=== PATIENT | female | born 1935 | race Caucasian/White ===

== ENCOUNTER 2016-12-26 21:54 | Emergency (ER) | payer OTHER, MEDICAID ==
[2016-12-26] MEDS ORDERED: Diatrizoate Meglumine/Diatri 30 mL Sol ONE (22:06)
--- NOTE | 2016-12-26 23:21 | ED Physician Chart ---
ED Chief Complaint/HPI - Patient Information Date Seen:: 12/26/16 Time Seen:: 22:07 Chief Complaint:: G-TUBE MALFUNCTION History of Present Illness:: THIS IS A 81 YO FEMALE SENT FROM A P[facility]ITENTIARY FOR REPLACEMENT OF HER MALFUNCTIONING G-TUBE. SHE IS PARAPLEGIC AND DEMENTED. Allergies:: Allergies Allergy/AdvReac Type Severity Reaction Status Date / Time Penicillins Allergy Verified 12/26/16 22:07 Vitals:: Vital Signs - 8 hr 12/26/16 22:00 Temp 97.2 F HR 51 RR 16 BP 129/66 O2 Sat % 98 Historian:: Medical Records Review:: Nurse's Note Reviewed, Old Chart Reviewed, Transfer documents Reviewed ED Review of Systems - Review of Systems General/Constitutional: No fever, No chills, No weight loss, No weakness, No diaphoresis, No edema, No loss of appetite, Other (THIS PATIENT IS UNABLE TO GIVE A REVIEW OF SYSTEMS) Skin: No skin lesions, No rash, No bruising Head: No headache, No light-headedness Eyes: No loss of vision, No pain, No diplopia ENT: No earache, No nasal drainage, No sore throat, No tinnitus Neck: No neck pain, No swelling, No thyromegaly, No stiffness, No mass noted Cardio Vascular: No chest pain, No palpitations, No PND, No orthopnea, No edema Pulmonary: No SOB, No cough, No sputum, No wheezing GI: No nausea, No vomiting, No diarrhea, No pain, No melena, No hematochezia, No constipation, No hematemesis G/U: No dysuria, No frequency, No hematuria Musculoskeletal: No bone or joint pain, No back pain, No muscle pain Endocrine: No polyuria, No polydipsia Psychiatric: No prior psych history, No depression, No anxiety, No suicidal ideation Hematopoietic: No bruising, No lymphadenopathy Allergic/Immuno: No urticaria, No angioedema Neurological: No syncope, No focal symptoms, No weakness, No paresthesia, No headache, No seizure, No dizziness, No confusion, No vertigo ED Past Medical History - Past Medical History Obtainable: Yes Past Medical History: CVA/TIA, Dyslipidemia, PUD/GERD, Dementia Family Medical History - Family Member Mother History Unknown: Yes ED Physical Exam - Physical Examination General/Constitutional: Awake, Well-developed, well-nourished, Alert, No distress, GCS 15, Non-toxic appearing, Ambulatory Other Gen/Cons comments:: THE PATIENT IS AWAKE BUT UNABLE TO TALK OR THINK AND IS CACHEXIC. Head: Atraumatic Eyes: Lids, conjuctiva normal, PERRL, EOMI Skin: Nl inspection, No rash, No skin lesions, No ecchymosis, Well hydrated, No lymphadenopathy ENMT: External ears, nose nl, Nasal exam nl, Lips, teeth, gums nl Neck: Nontender, Full ROM w/o pain, No JVD, No nuchal rigidity, No bruit, No mass, No stridor Respiratory: Nl effort/Exclusion, Clear to Auscultation, No Wheeze/Rhonchi/Rales Cardio Vascular: RRR, No murmur, gallop, rubs, NL S1 S2 GI: No tenderness/rebounding/guarding, No organomegaly, No hernia, Normal BS's, Nondistended, No mass/bruits, No McBurney tenderness Other GI comments:: G-TUBE OPENING NOTED WITH NO SIGN OF INFECTION. : No CVA tenderness Extremities: No tenderness or effusion, Full ROM, normal strength in all extremities, No edema, Normal digits & nails Neuro/Psych: Alert/oriented, DTR's symmetric, Normal sensory exam, Normal motor strength, Normal gait Other Neuro/Psych comments:: SHE HAS LIKE PARALYSIS POSTURE UNABLE TO MOVE HER UPPER EXTREMITIES Misc: normal gait, Normal back, No paraspinal tenderness ED Labs/Radiology/EKG Results - Radiology Results Results: G-TUBE IN THE STOMACH ON KUB GASTRIC INJECTED WITH DYE ED Assessment - Assessment General Assessment: G-TUBE REPLACED WITHOUT DIFFICULTY. ED Septic Shock - . Is Septic Shock (SBP<90, OR Lactate>4 mmol\L) present?: No - <6hrs of presentation: Vital Signs: Vital Signs - 8 hr 12/26/ 22:00 Temp 97.2 F HR 51 RR 16 BP 129/66 O2 Sat % 98 ED Reassessment (Disposition) - Reassessment Reassessment Condition:: Improved - Diagnosis Diagnosis:: G-TUBE REPLACEMENT - Aftercare/Follow up Instructions Aftercare/Follow-Up Instructions:: Counseled pt regarding lab results/diagnosis & need follow up, Refer to Discharge Instructions, Counseled pt & family regarding lab results/diagnosis & need follow up - Patient Disposition Discharge/Transfer:: Longterm Care - SNF Condition at Disposition:: Unchanged ED Discharge Plan - Patient Disposition Admit/Discharge/Transfer: Discharge/Transfered to SNF Condition at Disposition: Improved Instructions: Gastrostomy Tube, Adult Additional Instructions: follow up with your doctor if there are any other concerns.
--- NOTE | 2016-12-27 08:05 | Diagnostic Imaging Report ---
Upper GI (Limited) HISTORY: Gastrostomy tube placement The preliminary [facility] radiograph demonstrates moderately distended stool-filled contrast-filled colon and rectum. Water-soluble contrast was instilled through the patient's gastrostomy tube. There is opacification of the gastric lumen. IMPRESSION: 1. Confirmation of gastrostomy tube within the gastric lumen 2. Extensive stool contrast-filled large bowel and rectum consistent with changes of severe constipation and fecal impaction.
== END 2016-12-26 22:35 ==
LOC: ER 21:54
DX: K94.23 Gastrostomy malfunction (principal); E78.5 Hyperlipidemia, unspecified; K21.9 Gastro-esophageal reflux disease without esophagitis; Z86.73 Personal history of transient ischemic attack (TIA), and cerebral infarction without residual deficits; Z87.11 Personal history of peptic ulcer disease
CPT/HCPCS: Z7502; Z7610

== ENCOUNTER 2017-05-17 18:29 | Emergency (ER) | payer OTHER, MEDICAID ==
--- NOTE | 2017-05-17 18:50 | ED Physician Chart ---
ED Chief Complaint/HPI - Patient Information Date Seen:: 05/17/17 Time Seen:: 18:35 Chief Complaint:: G-tube replacement History of Present Illness:: Patient's former G-tube was cracked and leaking. Allergies:: Allergies Allergy/AdvReac Type Severity Reaction Status Date / Time Penicillins Allergy Verified 12/26/16 22:07 Historian:: EMS Review:: Transfer documents Reviewed ED Review of Systems - Review of Systems General/Constitutional: No fever, No chills, Other Skin: Skin lesions Head: No headache Eyes: No loss of vision ENT: No earache Neck: No neck pain, No swelling Cardio Vascular: No chest pain, No palpitations Pulmonary: No SOB GI: No nausea, No vomiting, No diarrhea G/U: No dysuria Musculoskeletal: No bone or joint pain Endocrine: No polyuria Psychiatric: Prior psych history Hematopoietic: No bruising Allergic/Immuno: No urticaria Neurological: No syncope, Focal symptoms ED Past Medical History - Past Medical History Past Medical History: Other (hepatic failure; COPD; extrapyramidal reactions; Alzheimer's disease) Family History: Other (unavailable) Social History: Care Facility Surgical History: other (G-tube) Psychiatricy History: Dementia Family Medical History - Family Member Mother History Unknown: Yes ED Physical Exam - Physical Examination General/Constitutional: No distress Other Gen/Cons comments:: Chronically ill-appearing; nonverbal; no acute distress Head: Atraumatic Eyes: Lids, conjuctiva normal Other Skin comments:: By 1 cm of erythema shunting G-tube site ENMT: External ears, nose nl Neck: No nuchal rigidity Respiratory: Nl effort/Exclusion, Clear to Auscultation Cardio Vascular: RRR GI: No tenderness/rebounding/guarding Other Neuro/Psych comments:: Contracture left upper extremity ED Assessment - Assessment General Assessment: Skin cleansed around G-tube site with Betadine solution; a 20 Vietnamese G-tube was inserted without difficulty and the balloon inflated with 15 mL of normal saline. KUB after the injection of 50 mL of Gastrografin showed. The contrast material to be in the gastrointestinal tract. Increased stool was noted on the KUB. ED Septic Shock - . Is Septic Shock (SBP<90, OR Lactate>4 mmol\L) present?: No ED Reassessment (Disposition) - Reassessment Reassessment Condition:: Improved - Diagnosis Diagnosis:: G-tube replacement; dementia; constipation - Aftercare/Follow up Instructions Aftercare/Follow-Up Instructions:: Refer to Discharge Instructions - Patient Disposition Discharge/Transfer:: Home Condition at Disposition:: Stable, Improved
[2017-05-17] MEDS ORDERED: Diatrizoate Meglumine/Diatri 30 mL Sol ONE (18:54)
--- NOTE | 2017-05-18 07:59 | Diagnostic Imaging Report ---
Exam: T wrist HISTORY: Gastrostomy tube placement Portable supine examination of the abdomen with injection of contrast material gastrostomy tube demonstrates normal opacification stomach IMPRESSION: Gastrostomy tube in the stomach There is evidence for severe fecal impaction.
== END 2017-05-17 19:30 ==
LOC: ER 18:29
DX: K94.23 Gastrostomy malfunction (principal); K59.00 Constipation, unspecified; F03.90 Unspecified dementia, unspecified severity, without behavioral disturbance, psychotic disturbance, mood disturbance, and anxiety; Z43.1 Encounter for attention to gastrostomy
CPT/HCPCS: Z7502

== ENCOUNTER 2018-02-01 16:24 | Inpatient (IN) | payer OTHER, MEDICAID ==
--- NOTE | 2018-02-01 17:22 | ED Physician Chart ---
ED Chief Complaint/HPI - Patient Information Date Seen:: 02/01/18 Time Seen:: 17:10 Chief Complaint:: swelling of hands History of Present Illness:: Patient's had swelling of her hands for an unspecified length of time. Allergies:: Allergies Allergy/AdvReac Type Severity Reaction Status Date / Time Penicillins Allergy Verified 12/26/16 22:07 Vitals:: Vital Signs - 8 hr 02/01/18 02/01/18 16:57 17:06 Temp 98.5 F 98.2 F HR 68 68 RR 20 20 BP 114/72 107/72 O2 Sat % 96 95 Review:: Transfer documents Reviewed ED Review of Systems - Review of Systems General/Constitutional: No fever, No chills Skin: Skin lesions Head: No headache Eyes: No loss of vision ENT: No earache Neck: No neck pain, No swelling Cardio Vascular: No chest pain, No palpitations Pulmonary: No SOB GI: No nausea, No vomiting, No diarrhea G/U: No dysuria Musculoskeletal: No bone or joint pain Endocrine: No polyuria Hematopoietic: No bruising Allergic/Immuno: No urticaria Neurological: No syncope ED Past Medical History - Past Medical History Past Medical History: Asthma/COPD, PUD/GERD, Dementia, Other (contractures; hepatic failure) Family History: Other (unavailable) Social History: Care Facility Surgical History: PEG/GTube Psychiatricy History: Dementia Medication: Reviewed Family Medical History - Family Member Mother History Unknown: Yes ED Physical Exam - Physical Examination Other Gen/Cons comments:: Chronically ill-appearing; nonverbal Head: Atraumatic Eyes: Lids, conjuctiva normal, PERRL Skin: Nl inspection ENMT: External ears, nose nl, Nasal exam nl, Lips, teeth, gums nl Neck: No JVD Respiratory: Nl effort/Exclusion, Clear to Auscultation Cardio Vascular: RRR GI: No tenderness/rebounding/guarding : No CVA tenderness Other Extremities comments:: Edema of fingers both hands; redness right long finger Neuro/Psych: No focal deficits ED Labs/Radiology/EKG Results - Lab Results Results: Laboratory Results - last 24 hr 02/01/18 02/01/18 17:33 17:33 WBC 6.3 RBC 3.88 Hgb 12.8 Hct 36.8 L MCV 94.8 MCH 33.1 H MCHC Differential 34.9 RDW 12.7 Plt Count 261 MPV 8.8 Neutrophils % 67.0 Lymphocytes % 23.6 Monocytes % 7.3 Eosinophils % 0.8 Basophils % 1.3 Sodium 138 Potassium 4.6 Chloride 104 Carbon Dioxide 27.0 Anion Gap 11.6 BUN 27 H Creatinine 0.7 Est GFR ( Amer) TNP Est GFR (Non-Af Amer) TNP BUN/Creatinine Ratio 38.6 Glucose 93 Calcium 9.6 Total Bilirubin 0.3 AST 23 ALT 12 Alkaline Phosphatase 66 Total Protein 7.5 Albumin 3.7 Globulin 3.8 Albumin/Globulin Ratio 1.0 - Radiology Results Results: Chest x-ray negative ED Assessment - Assessment General Assessment: I spoke to Dr. Abisai Allen and patient to be admitted to observation ED Septic Shock - . Is Septic Shock (SBP<90, OR Lactate>4 mmol\L) present?: No - <6hrs of presentation: Vital Signs: Vital Signs - 8 hr 02/01/18 02/01/18 16:57 17:06 Temp 98.5 F 98.2 F HR 68 68 RR 20 20 BP 114/72 107/72 O2 Sat % 96 95 ED Reassessment (Disposition) - Reassessment Reassessment Condition:: Unchanged - Diagnosis Diagnosis:: Dementia; edema fingers both hands; cellulitis right long finger - Patient Disposition Admitted to:: Med/Surg Spoke to:Srikanth amaya Condition at Disposition:: Stable, Unchanged
[2018-02-01 17:43] LABS: % BASOPHILS 1.3 % (0.0-2.0); % EOSINOPHILS 0.8 % (0.0-5.0); % LYMPHOCYTES 23.6 % (20.0-50.0); % MONOCYTES 7.3 % (2.0-10.0); BASOPHILE ABSOLUTE 0.1 Th/cumm (0-0.2); EOSINOPHILE ABSOLUTE 0.1 Th/cmm (0.1-0.4); HEMATOCRIT 36.8 % (41.0-60); HEMOGLOBIN 12.8 gm/dL (12-16); LYMPHOCYTE ABSOLUTE 1.5 Th/cmm (1.5-3.0); MEAN CELL VOLUME 94.8 fl (81-100); MEAN CORPUSCULAR HEMOGLOBIN 33.1 pg (27.0-31.0); MEAN CORPUSCULAR HGB CONC 34.9 pg (28.0-36.0); MEAN PLATELET VOLUME 8.8 fl; MONOCYTE ABSOLUTE 0.5 Th/cmm (0.3-1.0); NEUTROPHILE ABSOLUTE 4.1 Th/cmm (1.8-8.0); PLATELET COUNT 261 Th/cmm (150-400); RED BLOOD COUNT 3.88 Mil/cmm (3.80-5.20); RED CELL DISTRIBUTION WIDTH 12.7 % (11.5-20.0); WHITE BLOOD COUNT 6.3 Th/cmm (4.8-10.8)
[2018-02-01 17:59] LABS: ALBUMIN 3.7 gm/dL (3.7-5.3); ALKALINE PHOSPHATASE 66 U/L (34-104); ANION GAP 11.6 (7.0-16.0); BILIRUBIN,TOTAL 0.3 mg/dL (0.3-1.0); BUN - UREA NITROGEN 27 mg/dL (7-25); CALCIUM SERUM 9.6 mg/dL (8.6-10.3); CHLORIDE 104 mEq/L (98-107); CREATININE - SERUM 0.7 mg/dL (0.6-1.2); GLUCOSE 93 mg/dL (70-105); POTASSIUM SERUM 4.6 mEq/L (3.5-5.1); SGOT 23 U/L (13-39); SGPT/ALT 12 U/L (7-52); SODIUM SERUM 138 mEq/L (136-145); TOTAL PROTEIN,SERUM 7.5 gm/dL (6.0-8.3)
[2018-02-01] MEDS ORDERED: Sodium Chloride 0.9% 1,000 ML IV ONE (19:53)
[2018-02-01] MEDS: D5-0.45NS 1,000 ML IV SCH (23:00)
[2018-02-02 03:32] VITALS: BP 127/72
--- NOTE | 2018-02-02 08:41 | History and Physical ---
History of Present Illness - HPI Chief Complaint: right hand swelling HPI: 82 year old female who presents to [facility] ER for right hand swelling to the 3rd phalanx. Patient has a history of COPD, GERD, Dementia , Hepatic Failure, Dysphagia, Gtube placement, Anxiety disorder, Alzheimer's disorder, DJD. Patient initial labwork revealed the following ... - Lab Results Results: Laboratory Results - last 24 hr 02/01/18 02/01/18 17:33 17:33 WBC 6.3 RBC 3.88 Hgb 12.8 Hct 36.8 L MCV 94.8 MCH 33.1 H MCHC Differential 34.9 RDW 12.7 Plt Count 261 MPV 8.8 Neutrophils % 67.0 Lymphocytes % 23.6 Monocytes % 7.3 Eosinophils % 0.8 Basophils % 1.3 Sodium 138 Potassium 4.6 Chloride 104 Carbon Dioxide 27.0 Anion Gap 11.6 BUN 27 H Creatinine 0.7 Est GFR ( Amer) TNP Est GFR (Non-Af Amer) TNP BUN/Creatinine Ratio 38.6 Glucose 93 Calcium 9.6 Total Bilirubin 0.3 AST 23 ALT 12 Alkaline Phosphatase 66 Total Protein 7.5 Albumin 3.7 Globulin 3.8 Albumin/Globulin Ratio 1.0 Patient was subsequently admitted for further evaluation and treatment. Vital Signs: Last Vital Signs Temp 98.0 F 02/02/18 07:51 Pulse 59 02/02/18 07:51 Resp 18 02/02/18 07:51 BP 130/70 02/02/18 07:51 Pulse Ox 98 02/02/18 07:51 Past Medical History Pulmonary: Report: Asthma, COPD [employer]: Report: No Pertinent Hx GI: Report: Other (Hepatic Failure) Psych: Report: Other (Dementia) Musculoskeletal: Report: No Pertinent Hx Rheumatologic: Report: No pertinent Hx Infectious Disease: Report: No Pertinent Hx Renal/: Report: No Pertinent Hx Endocrine: Report: No Pertinent Hx Dermatology: Report: No Pertinent Hx - Past Surgical History Past Surgical History: Other (gtube placement) Family Medical History - Family Member Mother History Unknown: Yes Social History Smoke: No Alcohol: None Drugs: None Lives: Skilled Nursing - Medications Home Medications: Home Medication Medication Instructions Recorded Type Atorvastatin Calcium [Lipitor] 1 tab GT HS 02/01/18 History Baclofen [Lioresal*] 10 mg GT BID 02/01/18 History Clonazepam [Klonopin] 1 tab GT BID 02/01/18 History Dextromethorphan/Quinidine 1 cap GT BID 02/01/18 History [Nuedexta 20mg-10mg] Esomeprazole Magnesium [Nexium] 40 mg GT DAILY 02/01/18 History Fleet Enema 1 bottle RC PRN 02/01/18 History Magnesium Hydroxide [Milk of 30 ml PO DAILY 02/01/18 History Magnesia] Montelukast Sodium 1 pkg GT DAILY 02/01/18 History Nutrit Supp/Inulin/Fos/Fiber 1,500 ml GT DAILY 02/01/18 History [Fibersource Hn Liquid] Ondansetron HCl [Zofran] 5 ml GT Q6HR 02/01/18 History Polyethylene Glycol 3350 [Miralax] 1 pkg GT DAILY 02/01/18 History Sennosides [Senna] 1 tab GT BID 02/01/18 History - Allergies Allergies/Adverse Reactions: Allergies Allergy/AdvReac Type Severity Reaction Status Date / Time Penicillins Allergy Verified 12/26/16 22:07 Review of Systems - Review of Systems Constitutional: Report: No Significant Eyes: Report: No Significant ENT: Report: No Significant Respiratory: Report: No Significant Cardiovascular: Report: No Significant Gastrointestinal: Report: No Significant Genitourinary: Report: No Significant Musculoskeletal: Report: Other (right hand swelling) Skin: Report: No Significant Neurological: Report: No Significant Physical Exam - Physical Exam HEENT: Report: Ears Nose Throat within normal limits, Pharnyx within normal limits Neck: Report: Within normal limits Cardiovascular Systems: Report: +s1/s2 noted, Regular, Rate and Rhythm Respiratory: Report: Breath Sounds are within normal limits Abdomen: Report: Non-tender to palpation Back: Report: Inspection of back is within normal limits. Extremities: Report: Other (right hand swelling) Skin: Report: Other (right hand cellulitis) Neuro/Psych: Report: Mood affect is within normal limits - Lab Results All Lab Results last 24 hours: Laboratory Results - last 24 hr 02/01/18 02/01/18 02/01/18 17:33 17:33 22:39 WBC 6.3 RBC 3.88 Hgb 12.8 Hct 36.8 L MCV 94.8 MCH 33.1 H MCHC Differential 34.9 RDW 12.7 Plt Count 261 MPV 8.8 Neutrophils % 67.0 Lymphocytes % 23.6 Monocytes % 7.3 Eosinophils % 0.8 Basophils % 1.3 Sodium 138 Potassium 4.6 Chloride 104 Carbon Dioxide 27.0 Anion Gap 11.6 BUN 27 H Creatinine 0.7 Est GFR ( Amer) TNP Est GFR (Non-Af Amer) TNP BUN/Creatinine Ratio 38.6 Glucose 93 POC Glucose 103 Calcium 9.6 Total Bilirubin 0.3 AST 23 ALT 12 Alkaline Phosphatase 66 Total Protein 7.5 Albumin 3.7 Globulin 3.8 Albumin/Globulin Ratio 1.0 - Assessment Assessment: right hand swelling cellulitis Asthma/COPD PUD/GERD Dementia hepatic failure gtube placement - Plan Plan: will order CBC ortho consult right hand xray start IV antibiotics.
[2018-02-02] MEDS ORDERED: FIBER GT SCH (09:00)
[2018-02-02] MEDS ORDERED: Pantoprazole 40 mg/Packet GT SCH (09:00)
[2018-02-02] MEDS ORDERED: INULIN GT SCH (09:00)
[2018-02-02] MEDS ORDERED: FOS GT SCH (09:00)
[2018-02-02] MEDS ORDERED: POLYETHYLENE GLYCOL 3350 17 GM PACK GT SCH (09:00)
[2018-02-02] MEDS ORDERED: Magnesium Hydroxide (MOM) 30 mL UDC GT SCH (09:00)
[2018-02-02] MEDS ORDERED: [UNRECOGNIZED DRUG - OTHER] GT SCH (09:00)
[2018-02-02 09:16] LABS: % BASOPHILS 0.5 % (0.0-2.0); % EOSINOPHILS 1.1 % (0.0-5.0); % LYMPHOCYTES 28.7 % (20.0-50.0); % MONOCYTES 7.1 % (2.0-10.0); % NEUTROPHILS 62.6 % (40.0-80.0); EOSINOPHILE ABSOLUTE 0.1 Th/cmm (0.1-0.4); HEMATOCRIT 36.8 % (41.0-60); HEMOGLOBIN 12.4 gm/dL (12-16); LYMPHOCYTE ABSOLUTE 1.5 Th/cmm (1.5-3.0); MEAN CELL VOLUME 96.5 fl (81-100); MEAN CORPUSCULAR HEMOGLOBIN 32.6 pg (27.0-31.0); MEAN CORPUSCULAR HGB CONC 33.7 pg (28.0-36.0); MEAN PLATELET VOLUME 8.9 fl; MONOCYTE ABSOLUTE 0.4 Th/cmm (0.3-1.0); NEUTROPHILE ABSOLUTE 3.3 Th/cmm (1.8-8.0); PLATELET COUNT 240 Th/cmm (150-400); RED BLOOD COUNT 3.82 Mil/cmm (3.80-5.20); RED CELL DISTRIBUTION WIDTH 13.4 % (11.5-20.0); WHITE BLOOD COUNT 5.3 Th/cmm (4.8-10.8)
[2018-02-02] MEDS: Dextromethorphan/Quinidine 20mg/10mg Cap GT SCH ×2 (09:20→17:29)
--- NOTE | 2018-02-02 10:15 | Diagnostic Imaging Report ---
Portable chest x-ray HISTORY: Cough The heart size is difficult to assess with portable technique in a poor inspiration, but appears generous. Atherosclerotic calcification seen in the aorta. No definite acute focal pulmonary processes. IMPRESSION: 1. No acute focal pulmonary processes 2. Suggestion of cardiomegaly with atherosclerotic vascular changes
--- NOTE | 2018-02-02 10:21 | Diagnostic Imaging Report ---
Right hand (3 views) HISTORY: Swelling Evaluation of the phalanges is precluded due to severe flexion and overlapping of the bony structures. No obvious acute bony abnormalities seen through the carpal and metacarpal regions. IMPRESSION: 1. Extremely limited exam 2. No obvious acute abnormalities through the carpal and metacarpal regions.
[2018-02-02] MEDS ORDERED: VTE Chemical Prophylaxis Screen/Admission MC PRN (10:56)
[2018-02-02 11:35] LABS: ESR SEDIMENTATION SED RATE 64 mm/hr (0-30)
[2018-02-02] MEDS: D5-0.45NS 1,000 ML IV SCH (19:22)
[2018-02-02] MEDS ORDERED: Atorvastatin Calcium 10 MG TAB GT SCH (21:00)
[2018-02-03] MEDS ORDERED: Fleet Enema 135 mL RC PRN (09:00)
--- NOTE | 2018-02-05 17:38 | Discharge Summary ---
DATE OF DISCHARGE: 02/03/2018 PRELIMINARY DIAGNOSES: 1. Right hand edema and cellulitis. 2. Asthma. 3. Chronic obstructive pulmonary disease. 4. Peptic ulcer disease. 5. Dementia. 6. Status post G-tube placement due to dysphagia. DISCHARGE DIAGNOSES: 1. Right hand edema and cellulitis. 2. Asthma. 3. Chronic obstructive pulmonary disease. 4. Peptic ulcer disease. 5. Dementia. 6. Status post G-tube placement due to dysphagia. HISTORY OF PRESENT ILLNESS: This is an 82-year-old female who presents to [facility] ER for swelling and redness to the right hand. The patient was treated as outpatient given oral antibiotics, which did not show any improvement and thus was brought to the ER for further evaluation and treatment. Her initial lab work revealed a normal white count of 6.3, hemoglobin was normal at 12.8, hematocrit was normal at 36.8, platelets 261. Sodium was 138, potassium 4.6, chloride 104, bicarbonate 27, BUN 27, creatinine 0.7, glucose was 93. The patient had a sed rate that did reveal inflammation was 64, normal range is between 0-30. X-ray of the right hand revealed no obvious acute abnormalities to the carpal and metacarpal regions of the affected hand. The patient had some initial blood work, which revealed no growth. Nares also was cultured and no MRSA was found. The patient was started on IV vancomycin initially, but given her observation status, the patient was subsequently discharged back to the [facility] facility to have outpatient antibiotic treatment done at the [facility]. The patient was to see an orthopedist as outpatient for the affected hand for further evaluation. JOB# [id number]
== END 2018-02-02 21:10 | DRG 603 ==
LOC: ER 16:24 → MSI 20:32 → OBSVTOIN 20:32
PROVIDERS: ADMIT Family Medicine; ATTEND Family Medicine
DX: L03.113 Cellulitis of right upper limb (principal); Z93.1 Gastrostomy status; K27.9 Peptic ulcer, site unspecified, unspecified as acute or chronic, without hemorrhage or perforation; J44.9 Chronic obstructive pulmonary disease, unspecified; K21.9 Gastro-esophageal reflux disease without esophagitis; G30.9 Alzheimer's disease, unspecified; F02.80 Dementia in other diseases classified elsewhere, unspecified severity, without behavioral disturbance, psychotic disturbance, mood disturbance, and anxiety; F41.9 Anxiety disorder, unspecified; M19.90 Unspecified osteoarthritis, unspecified site; K72.90 Hepatic failure, unspecified without coma; Z88.0 Allergy status to penicillin
CPT/HCPCS: 36415-UA; 71045-TC; 73130-TC-RT; 80053-TC; 82948-90; 85025-TC; 85652-TC; J3370; Z7610

== ENCOUNTER 2018-09-10 14:11 | Inpatient (IN) | payer OTHER, MEDICAID ==
--- NOTE | 2018-09-10 14:38 | ED Physician Chart ---
ED Chief Complaint/HPI - Patient Information Date Seen:: 09/10/18 Time Seen:: 14:15 Chief Complaint:: Rash on left side of neck and chest. History of Present Illness:: Brought in by ambulance from nursing facility because pt has been noticed to have rash on left side of neck and left chest. Pt is alert but is essentially nonverbal. Pt has dementia and is uncooperative; thus, H & P are limited. Info is primarily from review of limited transfer documents. Allergies:: Allergies Allergy/AdvReac Type Severity Reaction Status Date / Time Penicillins Allergy Verified 12/26/16 22:07 Vitals:: Vital Signs - 8 hr 09/10/18 14:23 Temp 98.1 F HR 64 RR 19 BP 130/64 O2 Sat % 97 Historian:: Medical Records (from transferring facility.) Family MD/PCP:: Dr. Allen LMP:: postmenopausal. Review:: Nurse's Note Reviewed, Transfer documents Reviewed ED Review of Systems - Review of Systems General/Constitutional: Other (Pt does not cooperate for ROS.) ED Past Medical History - Past Medical History Past Medical History: Asthma/COPD, PUD/GERD, Dementia Family History: Other (Pt does not cooperate to provide info on FHx.) Social History: Care Facility, Other (Pt does not cooperate to provide info on SHx.) Employment:: Retired. Surgical History: PEG/GTube Psychiatricy History: Dementia Medication: Reviewed Family Medical History - Family Member Mother History Unknown: Yes ED Physical Exam - Physical Examination General/Constitutional: Awake, Well-developed, well-nourished (elderly female), Alert, No distress Other Gen/Cons comments:: Pt breathes comfortably, responds to voice and tactile stimuli. Pt is essentially nonverbal and is uncooperative. Head: Atraumatic Eyes: Lids, conjuctiva normal, PERRL, EOMI Other Skin comments:: There are papules and raised erythematous confluent area with mild warmth from left side of neck at the level of ear extending to left upper chest. No open wound. No crepitus. No exudate. ENMT: External ears, nose nl, Nasal exam nl, Oropharynx nl Neck: Nontender, Full ROM w/o pain, No JVD, No nuchal rigidity, No mass Respiratory: Nl effort/Exclusion, Clear to Auscultation, No Wheeze/Rhonchi/Rales Cardio Vascular: No murmur, gallop, rubs GI: No tenderness/rebounding/guarding, No organomegaly, Normal BS's, Nondistended, No mass/bruits Other GI comments:: A gastrostomy tube noticed at epigastric region. Extremities: No tenderness or effusion, No edema Neuro/Psych: Alert/oriented (responds to voice and tactile stimuli. There are spontaneous movements noticed in all 4 extremities. LUE shows contracture. Pt does not cooperate for full neurological exam.) ED Labs/Radiology/EKG Results - Lab Results Results: Laboratory Results - last 24 hr 09/10/18 09/10/18 09/10/18 14:50 14:50 14:50 WBC 6.7 RBC 4.23 Hgb 13.2 Hct 38.7 L MCV 91.6 MCH 31.1 H MCHC Differential 34.0 RDW 13.8 Plt Count 266 MPV 8.0 Neutrophils % 72.2 Lymphocytes % 16.6 L Monocytes % 10.1 H Eosinophils % 0.8 Basophils % 0.3 PT 10.2 INR 0.98 PTT (Actin FS) 26.7 Sodium 137 Potassium 5.0 Chloride 102 Carbon Dioxide 28.4 Anion Gap 11.6 BUN 20 Creatinine 0.7 Est GFR ( Amer) TNP Est GFR (Non-Af Amer) TNP BUN/Creatinine Ratio 28.6 Glucose 96 Whole Bld Lactic Acid Calcium 9.7 Total Bilirubin 0.3 AST 33 ALT 29 Alkaline Phosphatase 97 Total Protein 7.8 Albumin 3.9 Globulin 3.9 Albumin/Globulin Ratio 1.0 09/10/18 14:50 WBC RBC Hgb Hct MCV MCH MCHC Differential RDW Plt Count MPV Neutrophils % Lymphocytes % Monocytes % Eosinophils % Basophils % PT INR PTT (Actin FS) Sodium Potassium Chloride Carbon Dioxide Anion Gap BUN Creatinine Est GFR ( Amer) Est GFR (Non-Af Amer) BUN/Creatinine Ratio Glucose Whole Bld Lactic Acid 2.90 H* Calcium Total Bilirubin AST ALT Alkaline Phosphatase Total Protein Albumin Globulin Albumin/Globulin Ratio Laboratory Last Values WBC 6.7 Th/cmm (4.8-10.8) 09/10/18 14:50 RBC 4.23 Mil/cmm (3.80-5.20) 09/10/18 14:50 Hgb 13.2 gm/dL (12-16) 09/10/18 14:50 Hct 38.7 % (41.0-60) L 09/10/18 14:50 MCV 91.6 fl (81-100) 09/10/18 14:50 MCH 31.1 pg (27.0-31.0) H 09/10/18 14:50 MCHC Differential 34.0 pg (28.0-36.0) 09/10/18 14:50 RDW 13.8 % (11.5-20.0) 09/10/18 14:50 Plt Count 266 Th/cmm (150-400) 09/10/18 14:50 MPV 8.0 fl 09/10/18 14:50 Neutrophils % 72.2 % (40.0-80.0) 09/10/18 14:50 Lymphocytes % 16.6 % (20.0-50.0) L 09/10/18 14:50 Monocytes % 10.1 % (2.0-10.0) H 09/10/18 14:50 Eosinophils % 0.8 % (0.0-5.0) 09/10/18 14:50 Basophils % 0.3 % (0.0-2.0) 09/10/18 14:50 PT 10.2 SECONDS (9.5-11.5) 09/10/18 14:50 INR 0.98 (0.5-1.4) 09/10/18 14:50 PTT (Actin FS) 26.7 SECONDS (26.0-38.0) 09/10/18 14:50 Sodium 137 mEq/L (136-145) 09/10/18 14:50 Potassium 5.0 mEq/L (3.5-5.1) 09/10/18 14:50 Chloride 102 mEq/L (98-107) 09/10/18 14:50 Carbon Dioxide 28.4 mEq/L (21.0-31.0) 09/10/18 14:50 Anion Gap 11.6 (7.0-16.0) 09/10/18 14:50 BUN 20 mg/dL (7-25) 09/10/18 14:50 Creatinine 0.7 mg/dL (0.6-1.2) 09/10/18 14:50 Est GFR ( Amer) TNP 09/10/18 14:50 Est GFR (Non-Af Amer) TNP 09/10/18 14:50 BUN/Creatinine Ratio 28.6 09/10/18 14:50 Glucose 96 mg/dL (70-105) 09/10/18 14:50 Whole Bld Lactic Acid 2.90 mmol/L (0.60-1.99) H* 09/10/18 14:50 Calcium 9.7 mg/dL (8.6-10.3) 09/10/18 14:50 Total Bilirubin 0.3 mg/dL (0.3-1.0) 09/10/18 14:50 AST 33 U/L (13-39) 09/10/18 14:50 ALT 29 U/L (7-52) 09/10/18 14:50 Alkaline Phosphatase 97 U/L (34-104) 09/10/18 14:50 Total Protein 7.8 gm/dL (6.0-8.3) 09/10/18 14:50 Albumin 3.9 gm/dL (3.7-5.3) 09/10/18 14:50 Globulin 3.9 gm/dL 09/10/18 14:50 Albumin/Globulin Ratio 1.0 (1.0-1.8) 09/10/18 14:50 Urine Source CATH 09/10/18 14:00 Urine Color YELLOW 09/10/18 14:00 Urine Clarity CLOUDY (CLEAR) H 09/10/18 14:00 Urine pH 8.5 (4.6 - 8.0) 09/10/18 14:00 Ur Specific [place] 1.010 (1.005-1.030) 09/10/18 14:00 Urine Protein TRACE mg/dL (NEGATIVE) 09/10/18 14:00 Urine Glucose (UA) NEGATIVE mg/dL (NEGATIVE) 09/10/18 14:00 Urine Ketones NEGATIVE mg/dL (NEGATIVE) 09/10/18 14:00 Urine Blood TRACE (NEGATIVE) 09/10/18 14:00 Urine Nitrate NEGATIVE (NEGATIVE) 09/10/18 14:00 Urine Bilirubin NEGATIVE (NEGATIVE) 09/10/18 14:00 Urine Urobilinogen 0.2 E.U./dL (0.2 - 1.0) 09/10/18 14:00 Ur Leukocyte Esterase LARGE (NEGATIVE) H 09/10/18 14:00 Urine RBC 2-5 /hpf (0-5) 09/10/18 14:00 Urine WBC 6-10 /hpf (0-5) H 09/10/18 14:00 Ur Epithelial Cells MODERATE /lpf (FEW) 09/10/18 14:00 Amorphous Sediment FEW PHOSPHATES (NONE SEEN) 09/10/18 14:00 Urine Bacteria 2+ /hpf (NONE SEEN) H 09/10/18 14:00 Pending lab results: blood cultures, urine culture. ED Septic Shock - . Is Septic Shock (SBP<90, OR Lactate>4 mmol\L) present?: No - <6hrs of presentation: Vital Signs: Vital Signs - 8 hr 09/10/18 14:23 Temp 98.1 F HR 64 RR 19 BP 130/64 O2 Sat % 97 ED Reassessment (Disposition) - Reassessment Reassessment:: 1538 Pt remains stable and comfortable. No new complaint and findings. 1750 Pt's health plan medical assembly just called. He approved pt to be admitted for observaton. Case was discussed with Dr. Allen. Pt is to be admitted to [facility] under his care. Reassessment Condition:: Improved - Diagnosis Diagnosis:: Probable contact dermatitis with secondary bacterial cellulitis. Doubt herpes zoster. Urinary tract infection. Lactic acidosis. Dementia - Patient Disposition Admitted to:: Med/Surg Admitting Medical Physician:: Abisai Allen Time:: 18:00 Condition at Disposition:: Stable
[2018-09-10 14:56] LABS: % BASOPHILS 0.3 % (0.0-2.0); % EOSINOPHILS 0.8 % (0.0-5.0); % LYMPHOCYTES 16.6 % (20.0-50.0); % MONOCYTES 10.1 % (2.0-10.0); % NEUTROPHILS 72.2 % (40.0-80.0); EOSINOPHILE ABSOLUTE 0.1 Th/cmm (0.1-0.4); HEMATOCRIT 38.7 % (41.0-60); HEMOGLOBIN 13.2 gm/dL (12-16); LYMPHOCYTE ABSOLUTE 1.1 Th/cmm (1.5-3.0); MEAN CELL VOLUME 91.6 fl (81-100); MEAN CORPUSCULAR HEMOGLOBIN 31.1 pg (27.0-31.0); MONOCYTE ABSOLUTE 0.7 Th/cmm (0.3-1.0); NEUTROPHILE ABSOLUTE 4.8 Th/cmm (1.8-8.0); PLATELET COUNT 266 Th/cmm (150-400); RED BLOOD COUNT 4.23 Mil/cmm (3.80-5.20); RED CELL DISTRIBUTION WIDTH 13.8 % (11.5-20.0); WHITE BLOOD COUNT 6.7 Th/cmm (4.8-10.8)
[2018-09-10 15:10] LABS: ALBUMIN 3.9 gm/dL (3.7-5.3); ALKALINE PHOSPHATASE 97 U/L (34-104); ANION GAP 11.6 (7.0-16.0); BILIRUBIN,TOTAL 0.3 mg/dL (0.3-1.0); BUN - UREA NITROGEN 20 mg/dL (7-25); CALCIUM SERUM 9.7 mg/dL (8.6-10.3); CARBON DIOXIDE 28.4 mEq/L (21.0-31.0); CHLORIDE 102 mEq/L (98-107); CREATININE - SERUM 0.7 mg/dL (0.6-1.2); GLUCOSE 96 mg/dL (70-105); SGOT 33 U/L (13-39); SGPT/ALT 29 U/L (7-52); SODIUM SERUM 137 mEq/L (136-145); TOTAL PROTEIN,SERUM 7.8 gm/dL (6.0-8.3)
[2018-09-10 15:11] LABS: INR 0.98 (0.5-1.4)
[2018-09-10 15:25] LABS: URINE SOURCE CATH
[2018-09-10 15:47] LABS: URINE BILIRUBIN NEGATIVE (NEGATIVE); URINE BLOOD TRACE (NEGATIVE); URINE GLUCOSE (UA) NEGATIVE (NEGATIVE); URINE KETONE NEGATIVE (NEGATIVE); URINE LEUKOCYTE ESTERASE LARGE (NEGATIVE); URINE MICROSCOPIC INDICATED? YES; URINE NITRATE NEGATIVE (NEGATIVE); URINE PH 8.5 (4.6 - 8.0); URINE PROTEIN TRACE mg/dL (NEGATIVE); URINE UROBILINOGEN 0.2 E.U./dL (0.2 - 1.0)
[2018-09-10] MEDS ORDERED: Sodium Chloride 0.9% 1,000 ML IV ONE (15:50)
[2018-09-10 16:12] LABS: URINE CLARITY CLOUDY (CLEAR); URINE COLOR YELLOW
[2018-09-10 16:16] LABS: URINE AMORPHOUS SEDIMENT FEW PHOSPHATES (NONE SEEN); URINE BACTERIA 2+ /hpf (NONE SEEN); URINE EPITHELIAL CELLS MODERATE /lpf (FEW)
[2018-09-10 20:55] VITALS: BP 168/67
[2018-09-11 06:45] LABS: % BASOPHILS 0.7 % (0.0-2.0); % EOSINOPHILS 1.6 % (0.0-5.0); % LYMPHOCYTES 18.3 % (20.0-50.0); % MONOCYTES 13.3 % (2.0-10.0); % NEUTROPHILS 66.1 % (40.0-80.0); EOSINOPHILE ABSOLUTE 0.1 Th/cmm (0.1-0.4); HEMATOCRIT 35.9 % (41.0-60); HEMOGLOBIN 12.1 gm/dL (12-16); LYMPHOCYTE ABSOLUTE 1.1 Th/cmm (1.5-3.0); MEAN CELL VOLUME 91.8 fl (81-100); MEAN CORPUSCULAR HEMOGLOBIN 30.9 pg (27.0-31.0); MEAN CORPUSCULAR HGB CONC 33.7 pg (28.0-36.0); MONOCYTE ABSOLUTE 0.8 Th/cmm (0.3-1.0); NEUTROPHILE ABSOLUTE 3.8 Th/cmm (1.8-8.0); PLATELET COUNT 241 Th/cmm (150-400); RED BLOOD COUNT 3.91 Mil/cmm (3.80-5.20); WHITE BLOOD COUNT 5.8 Th/cmm (4.8-10.8)
[2018-09-11 07:14] LABS: ALBUMIN 3.5 gm/dL (3.7-5.3); ALKALINE PHOSPHATASE 91 U/L (34-104); ANION GAP 12.5 (7.0-16.0); BILIRUBIN,TOTAL 0.3 mg/dL (0.3-1.0); BUN - UREA NITROGEN 21 mg/dL (7-25); CALCIUM SERUM 9.3 mg/dL (8.6-10.3); CHLORIDE 104 mEq/L (98-107); CREATININE - SERUM 0.7 mg/dL (0.6-1.2); GLUCOSE 105 mg/dL (70-105); POTASSIUM SERUM 4.5 mEq/L (3.5-5.1); SGOT 32 U/L (13-39); SGPT/ALT 27 U/L (7-52); SODIUM SERUM 135 mEq/L (136-145)
--- NOTE | 2018-09-11 08:06 | History and Physical ---
History of Present Illness - HPI Chief Complaint: Rash Left side neck/chest HPI: 83 y/o female who presents to [facility] ER for rash to the left side of the neck and chest. Patient has a history of cellulitis Right Up Ext, COPD/Asthma, Dementia, GERD, Anxiety d/o, Alzheimer's dementia. S/p gastrostomy tube. Patient had routine labwork in the ER which revealed the following. WBC 5.8 H/H 12.1/35.9 plat 241K Na 135 K 4.5 Bun/Cr 21/0.7 glu 105 UA + cloudy leukoesterase large WBC 6-10 cells Bact +2 Patient was subsequently admitted in observation for further evaluation and treatment. Vital Signs: Last Vital Signs Temp 97.6 F 09/11/18 04:00 Pulse 65 09/11/18 04:00 Resp 18 09/11/18 04:00 BP 115/55 09/11/18 04:00 Pulse Ox 96 09/11/18 04:00 Past Medical History Cardiovascular: Report: No Pertinent Hx Pulmonary: Report: COPD [employer]: Report: Dementia, Other (Alzheimer's dementia) GI: Report: GERD, Other (dysphagia) Psych: Report: Anxiety Musculoskeletal: Report: No Pertinent Hx Rheumatologic: Report: No pertinent Hx Infectious Disease: Report: No Pertinent Hx Renal/: Report: No Pertinent Hx Endocrine: Report: No Pertinent Hx Dermatology: Report: Cellulitis - Past Surgical History Past Surgical History: Other (s/p g tube insertion) Family Medical History - Family Member Mother History Unknown: Yes Social History Smoke: No Alcohol: None Drugs: None Lives: [facility] - Medications Home Medications: Home Medication Medication Instructions Recorded Type Atorvastatin Calcium [Lipitor] 1 tab GT HS 02/01/18 History Baclofen [Lioresal*] 10 mg GT BID 02/01/18 History Clonazepam [Klonopin] 1 tab GT BID 02/01/18 History Dextromethorphan/Quinidine 1 cap GT BID 02/01/18 History [Nuedexta 20mg-10mg] Esomeprazole Magnesium [Nexium] 40 mg GT DAILY 02/01/18 History Magnesium Hydroxide [Milk of 30 ml GT DAILY 02/01/18 History Magnesia] Montelukast Sodium 10 mg GT HS 02/01/18 History Polyethylene Glycol 3350 [Miralax] 1 pkg GT DAILY 02/01/18 History Sennosides [Senna] 1 tab GT BID 02/01/18 History Acetaminophen [Tylenol 650 mg GT Q4H PRN 09/10/18 History 650mg/20.3mL Suspension] - Allergies Allergies/Adverse Reactions: Allergies Allergy/AdvReac Type Severity Reaction Status Date / Time Penicillins Allergy Verified 12/26/16 22:07 Review of Systems - Review of Systems Constitutional: Report: No Significant Eyes: Report: No Significant ENT: Report: No Significant Respiratory: Report: No Significant Cardiovascular: Report: No Significant Gastrointestinal: Report: No Significant Genitourinary: Report: No Significant Musculoskeletal: Report: No Significant Skin: Report: Rash Neurological: Report: No Significant Physical Exam - Physical Exam HEENT: Report: Ears Nose Throat within normal limits, Pharnyx within normal limits Neck: Report: Within normal limits Cardiovascular Systems: Report: +s1/s2 noted Respiratory: Report: Breath Sounds are within normal limits Abdomen: Report: Non-tender to palpation Back: Report: Inspection of back is within normal limits. Extremities: Report: Non-tender to palpation. Skin: Report: Other (maculopapular rash noted to the neck/chest ) - Lab Results All Lab Results last 24 hours: Laboratory Results - last 24 hr 09/10/18 09/10/18 09/10/18 14:00 14:50 14:50 WBC 6.7 RBC 4.23 Hgb 13.2 Hct 38.7 L MCV 91.6 MCH 31.1 H MCHC Differential 34.0 RDW 13.8 Plt Count 266 MPV 8.0 Neutrophils % 72.2 Lymphocytes % 16.6 L Monocytes % 10.1 H Eosinophils % 0.8 Basophils % 0.3 PT 10.2 INR 0.98 PTT (Actin FS) 26.7 Sodium Potassium Chloride Carbon Dioxide Anion Gap BUN Creatinine Est GFR ( Amer) Est GFR (Non-Af Amer) BUN/Creatinine Ratio Glucose Whole Bld Lactic Acid Calcium Total Bilirubin AST ALT Alkaline Phosphatase Total Protein Albumin Globulin Albumin/Globulin Ratio Urine Source CATH Urine Color YELLOW Urine Clarity CLOUDY H Urine pH 8.5 Ur Specific [place] 1.010 Urine Protein TRACE Urine Glucose (UA) NEGATIVE Urine Ketones NEGATIVE Urine Blood TRACE Urine Nitrate NEGATIVE Urine Bilirubin NEGATIVE Urine Urobilinogen 0.2 Ur Leukocyte Esterase LARGE H Urine RBC 2-5 Urine WBC 6-10 H Ur Epithelial Cells MODERATE Amorphous Sediment FEW PHOSPHATES Urine Bacteria 2+ H 09/10/18 09/10/18 09/10/18 14:50 14:50 17:10 WBC RBC Hgb Hct MCV MCH MCHC Differential RDW Plt Count MPV Neutrophils % Lymphocytes % Monocytes % Eosinophils % Basophils % PT INR PTT (Actin FS) Sodium 137 Potassium 5.0 Chloride 102 Carbon Dioxide 28.4 Anion Gap 11.6 BUN 20 Creatinine 0.7 Est GFR ( Amer) TNP Est GFR (Non-Af Amer) TNP BUN/Creatinine Ratio 28.6 Glucose 96 Whole Bld Lactic Acid 2.90 H* 1.17 Calcium 9.7 Total Bilirubin 0.3 AST 33 ALT 29 Alkaline Phosphatase 97 Total Protein 7.8 Albumin 3.9 Globulin 3.9 Albumin/Globulin Ratio 1.0 Urine Source Urine Color Urine Clarity Urine pH Ur Specific [place] Urine Protein Urine Glucose (UA) Urine Ketones Urine Blood Urine Nitrate Urine Bilirubin Urine Urobilinogen Ur Leukocyte Esterase Urine RBC Urine WBC Ur Epithelial Cells Amorphous Sediment Urine Bacteria 09/11/18 09/11/18 09/11/18 05:50 05:50 05:50 WBC 5.8 RBC 3.91 Hgb 12.1 Hct 35.9 L MCV 91.8 MCH 30.9 MCHC Differential 33.7 RDW 14.0 Plt Count 241 MPV 8.5 Neutrophils % 66.1 Lymphocytes % 18.3 L Monocytes % 13.3 H Eosinophils % 1.6 Basophils % 0.7 PT INR PTT (Actin FS) Sodium 135 L Potassium 4.5 Chloride 104 Carbon Dioxide 23.0 Anion Gap 12.5 BUN 21 Creatinine 0.7 Est GFR ( Amer) TNP Est GFR (Non-Af Amer) TNP BUN/Creatinine Ratio 30.0 Glucose 105 Whole Bld Lactic Acid 2.00 H Calcium 9.3 Total Bilirubin 0.3 AST 32 ALT 27 Alkaline Phosphatase 91 Total Protein 7.0 Albumin 3.5 L Globulin 3.5 Albumin/Globulin Ratio 1.0 Urine Source Urine Color Urine Clarity Urine pH Ur Specific [place] Urine Protein Urine Glucose (UA) Urine Ketones Urine Blood Urine Nitrate Urine Bilirubin Urine Urobilinogen Ur Leukocyte Esterase Urine RBC Urine WBC Ur Epithelial Cells Amorphous Sediment Urine Bacteria - Assessment Assessment: Current Active Problems Problem Status Onset RAISED RED RASH TO LEFT LATERAL NECK Acute cellulitis neck/chest wall elevated lactic acid UTI Asthma/COPD Dementia Dysphagia s/p gastrostomy tube Alzheimer's dementia - Plan Plan: repeat CBC,CMP,lactic acid ID consult psyche consult
[2018-09-11] MEDS ORDERED: Dextromethorphan/Quinidine 20mg/10mg Cap GT SCH (09:00)
[2018-09-11] MEDS ORDERED: POLYETHYLENE GLYCOL 3350 17 GM PACK GT SCH (09:00)
[2018-09-11] MEDS ORDERED: Magnesium Hydroxide (MOM) 30 mL UDC GT SCH (09:00)
[2018-09-11] MEDS ORDERED: Non-Formulary Item 1 EA (Esomeprazole Magnesium [Nexium] 40 MG) GT SCH (09:00)
[2018-09-11] MEDS: POLYETHYLENE GLYCOL 3350 17 GM PACK GT SCH (09:03)
[2018-09-11] MEDS: Magnesium Hydroxide (MOM) 30 mL UDC GT SCH (09:03)
[2018-09-11] MEDS: Dextromethorphan/Quinidine 20mg/10mg Cap GT SCH ×2 (10:22→17:17)
--- NOTE | 2018-09-11 11:17 | Consultation ---
Consult Note - Consult Note Service Date: 09/11/18 Referring Physician: Abisai Allen Consult Note: PHYSICIAN Consultation Note: Date of Admission: 09/10/18 Purpose of Consultation: Cellulitis of the left side of neck. Chief Complaint: Patient ANA SCHMID was admitted to location Medical/ Surgical Unit I with CELLULITIS. History of Present Illness: 83 year old female with history of COPD/Asthma, Dementia, GERD, Anxiety d/o, Alzheimer's dementia. S/p gastrostomy tube, brought in from SNF, for erythematous rashes on upper chest, neck and shoulder and upper back on the left side. Vanco IV was started and ID consult was called for antibiotic management. Past Medical History: COPD/Asthma, Dementia, GERD, Anxiety d/o, Alzheimer's dementia. S/p gastrostomy tube Allergies Allergy/AdvReac Type Severity Reaction Status Date / Time Penicillins Allergy Verified 12/26/16 22:07 Vital Signs Temp 98.1 F 09/11/18 08:00 Pulse 83 09/11/18 08:57 Resp 18 09/11/18 08:00 BP 112/76 09/11/18 08:57 Pulse Ox 95 09/11/18 08:00 Intake & Output 09/10/18 09/11/18 09/11/18 18:59 06:59 18:59 Intake Total 250 630 Output Total 2 Balance 250 628 Weight (lbs) 47.627 kg 52.072 kg Intake: Intake, IV Amount 250 Vancomycin HCl 1 gm In 250 Sodium Chloride 0.9% 250 ml @ 165 mls/hr IV X1 ONE Rx#:[id number] Tube Feeding 630 Output: Urine 2 Other: # Voids 2 # Bowel Movements 0 Weight Source Estimated Bedscale Laboratory Results - last 24 hr 09/10/18 09/10/18 09/10/18 14:00 14:50 14:50 WBC 6.7 RBC 4.23 Hgb 13.2 Hct 38.7 L MCV 91.6 MCH 31.1 H MCHC Differential 34.0 RDW 13.8 Plt Count 266 MPV 8.0 Neutrophils % 72.2 Lymphocytes % 16.6 L Monocytes % 10.1 H Eosinophils % 0.8 Basophils % 0.3 PT 10.2 INR 0.98 PTT (Actin FS) 26.7 Sodium Potassium Chloride Carbon Dioxide Anion Gap BUN Creatinine Est GFR ( Amer) Est GFR (Non-Af Amer) BUN/Creatinine Ratio Glucose Whole Bld Lactic Acid Calcium Total Bilirubin AST ALT Alkaline Phosphatase Total Protein Albumin Globulin Albumin/Globulin Ratio Urine Source CATH Urine Color YELLOW Urine Clarity CLOUDY H Urine pH 8.5 Ur Specific [place] 1.010 Urine Protein TRACE Urine Glucose (UA) NEGATIVE Urine Ketones NEGATIVE Urine Blood TRACE Urine Nitrate NEGATIVE Urine Bilirubin NEGATIVE Urine Urobilinogen 0.2 Ur Leukocyte Esterase LARGE H Urine RBC 2-5 Urine WBC 6-10 H Ur Epithelial Cells MODERATE Amorphous Sediment FEW PHOSPHATES Urine Bacteria 2+ H 09/10/18 09/10/18 09/10/18 14:50 14:50 17:10 WBC RBC Hgb Hct MCV MCH MCHC Differential RDW Plt Count MPV Neutrophils % Lymphocytes % Monocytes % Eosinophils % Basophils % PT INR PTT (Actin FS) Sodium 137 Potassium 5.0 Chloride 102 Carbon Dioxide 28.4 Anion Gap 11.6 BUN 20 Creatinine 0.7 Est GFR ( Amer) TNP Est GFR (Non-Af Amer) TNP BUN/Creatinine Ratio 28.6 Glucose 96 Whole Bld Lactic Acid 2.90 H* 1.17 Calcium 9.7 Total Bilirubin 0.3 AST 33 ALT 29 Alkaline Phosphatase 97 Total Protein 7.8 Albumin 3.9 Globulin 3.9 Albumin/Globulin Ratio 1.0 Urine Source Urine Color Urine Clarity Urine pH Ur Specific [place] Urine Protein Urine Glucose (UA) Urine Ketones Urine Blood Urine Nitrate Urine Bilirubin Urine Urobilinogen Ur Leukocyte Esterase Urine RBC Urine WBC Ur Epithelial Cells Amorphous Sediment Urine Bacteria 09/11/18 09/11/18 09/11/18 05:50 05:50 05:50 WBC 5.8 RBC 3.91 Hgb 12.1 Hct 35.9 L MCV 91.8 MCH 30.9 MCHC Differential 33.7 RDW 14.0 Plt Count 241 MPV 8.5 Neutrophils % 66.1 Lymphocytes % 18.3 L Monocytes % 13.3 H Eosinophils % 1.6 Basophils % 0.7 PT INR PTT (Actin FS) Sodium 135 L Potassium 4.5 Chloride 104 Carbon Dioxide 23.0 Anion Gap 12.5 BUN 21 Creatinine 0.7 Est GFR ( Amer) TNP Est GFR (Non-Af Amer) TNP BUN/Creatinine Ratio 30.0 Glucose 105 Whole Bld Lactic Acid 2.00 H Calcium 9.3 Total Bilirubin 0.3 AST 32 ALT 27 Alkaline Phosphatase 91 Total Protein 7.0 Albumin 3.5 L Globulin 3.5 Albumin/Globulin Ratio 1.0 Urine Source Urine Color Urine Clarity Urine pH Ur Specific [place] Urine Protein Urine Glucose (UA) Urine Ketones Urine Blood Urine Nitrate Urine Bilirubin Urine Urobilinogen Ur Leukocyte Esterase Urine RBC Urine WBC Ur Epithelial Cells Amorphous Sediment Urine Bacteria 09/11/18 07:50 WBC RBC Hgb Hct MCV MCH MCHC Differential RDW Plt Count MPV Neutrophils % Lymphocytes % Monocytes % Eosinophils % Basophils % PT INR PTT (Actin FS) Sodium Potassium Chloride Carbon Dioxide Anion Gap BUN Creatinine Est GFR ( Amer) Est GFR (Non-Af Amer) BUN/Creatinine Ratio Glucose Whole Bld Lactic Acid 1.78 Calcium Total Bilirubin AST ALT Alkaline Phosphatase Total Protein Albumin Globulin Albumin/Globulin Ratio Urine Source Urine Color Urine Clarity Urine pH Ur Specific [place] Urine Protein Urine Glucose (UA) Urine Ketones Urine Blood Urine Nitrate Urine Bilirubin Urine Urobilinogen Ur Leukocyte Esterase Urine RBC Urine WBC Ur Epithelial Cells Amorphous Sediment Urine Bacteria Home Medication Medication Instructions Recorded Type Atorvastatin Calcium [Lipitor] 1 tab GT HS 02/01/18 History Baclofen [Lioresal*] 10 mg GT BID 02/01/18 History Clonazepam [Klonopin] 1 tab GT BID 02/01/18 History Dextromethorphan/Quinidine 1 cap GT BID 02/01/18 History [Nuedexta 20mg-10mg] Esomeprazole Magnesium [Nexium] 40 mg GT DAILY 02/01/18 History Magnesium Hydroxide [Milk of 30 ml GT DAILY 02/01/18 History Magnesia] Montelukast Sodium 10 mg GT HS 02/01/18 History Polyethylene Glycol 3350 [Miralax] 1 pkg GT DAILY 02/01/18 History Sennosides [Senna] 1 tab GT BID 02/01/18 History Acetaminophen [Tylenol 650 mg GT Q4H PRN 09/10/18 History 650mg/20.3mL Suspension] Current Medications Generic Name Dose Route Start Last Admin Trade Name Freq PRN Reason Stop Dose Admin Acetaminophen 650 mg 09/11/18 00:30 Tylenol 650mg/20.3ml Suspension GT 11/10/18 00:29 Q4H PRN Pain or Fever >101 Acyclovir 800 mg 09/11/18 18:15 Zovirax GT 09/11/18 18:16 1815 CATARINA Atorvastatin Calcium 20 mg 09/11/18 21:00 Lipitor GT 11/10/18 20:59 HS CATARINA Protocol Baclofen 10 mg 09/11/18 09:00 09/11/18 09:03 Lioresal GT 11/10/18 08:59 10 mg BID CATARINA Administration Clonazepam 0.5 mg 09/11/18 09:00 09/11/18 10:22 Klonopin GT 11/10/18 08:59 Not Given BID CATARINA Protocol Dextromethorphan/Quinidine 1 cap 09/11/18 09:00 09/11/18 10:22 Nuedexta 20mg-10mg GT 11/10/18 08:59 Not Given BID CATARINA Vancomycin HCl 1 gm/ Sodium 250 mls @ 165 mls/hr 09/11/18 11:00 09/11/18 10: 42 Chloride IV 11/10/18 10:59 165 mls/hr Q24H CATARINA Administration Acyclovir Sodium 500 mg/ 110 mls @ 110 mls/hr 09/11/18 13:00 Dextrose IV 11/10/18 12:59 Q8HR [facility]ARINA Lisinopril 20 mg 09/11/18 09:00 09/11/18 08:57 Zestril GT 11/10/18 08:59 Not Given DAILY [facility]INA Magnesium Hydroxide 30 ml 09/11/18 09:00 09/11/18 09:03 Milk Of Magnesia GT 11/10/18 08:59 30 ml DAILY [facility]INA Administration Miscellaneous 1 ea 09/11/18 07:56 Vancomycin Iv Per Pharmacy 11/10/18 07:55 PRN PRN PROTOCOL Montelukast Sodium 10 mg 09/11/18 21:00 Singulair GT 11/10/18 20:59 HS [facility]ARINA Pantoprazole Sodium 40 mg 09/12/18 09:00 Protonix PO 11/11/18 08:59 DAILY [facility] Polyethylene Glycol 17 gm 09/11/18 09:00 09/11/18 09:03 Miralax GT 11/10/18 08:59 17 gm DAILY [facility]INA Administration Senna 8.6 mg 09/11/18 09:00 09/11/18 09:03 Senna GT 11/10/18 08:59 8.6 mg BID [facility]INA Administration Review of Systems: A 12 point ROS was reviewed with the pertinent positive and negatives noted in the HPI. Rash as mentioned in the HPI Social History Smoking Status Never smoker Drug Use No Alcohol Use No Lives at SNF. Family Medical History Unknown. Physical Exam: General: Comfortable, lean and thin female. not in any acute distress. HEENT: HEAD: NC NT. Oral cavity: moist pink tongue. EYES: pallor is present, no icterus. PUPIL PERRLA. EOMI. Face: Symmetrical. Neck: Supple,no HVD, no carotid bruit, Noo ise of accessory neck muscles. Cardio: S1 and S2 WNL, no murmur, no gallop. Respiratory: Vesicular breath sounds. NO crackles, no wheezing, no rhonchi. Abdominal: Soft NT ND BS Genital/Urinary: Deferred. Extremities: NCCE. Neurological: AAOx3. SKIN: macular papular discrete erythematous rashes on upper chest, neck and shoulder and upper back on the left side. there are multiple small tiny vesicles at the center of some of the rashes. Assessment: 1. [place]ingle. 2. ? secondary infection. 3. Dementia. 4. COPD/Asthma Plan: Start Acyclovir IV and continue vancO PO. Contact and airborne isolation. Thank you, Dr Allen for involving me in taking care of this patient. Signed, Aureliano Garcia M.D. [id number]/11/[id number]
[2018-09-11] MEDS: DEXTROSE 5% IV SCH ×2 (13:55→21:05)
[2018-09-11] MEDS: ACYCLOVIR SODIUM IV SCH ×2 (13:55→21:05)
[2018-09-11] MEDS ORDERED: Non-Formulary Item 1 EA (Atorvastatin Calcium [Lipitor] 1 TAB) GT SCH (21:00)
[2018-09-11] MEDS ORDERED: MONTELUKAST SODIUM 10 MG GT SCH (21:00)
[2018-09-11] MEDS: Atorvastatin Calcium 10 MG TAB GT SCH (21:05)
[2018-09-12] MEDS: ACYCLOVIR SODIUM IV SCH ×3 (04:15→21:33)
[2018-09-12] MEDS: DEXTROSE 5% IV SCH ×3 (04:15→21:33)
[2018-09-12 06:27] LABS: % BASOPHILS 0.2 % (0.0-2.0); % EOSINOPHILS 1.1 % (0.0-5.0); % LYMPHOCYTES 16.9 % (20.0-50.0); % MONOCYTES 13.8 % (2.0-10.0); EOSINOPHILE ABSOLUTE 0.1 Th/cmm (0.1-0.4); HEMATOCRIT 36.5 % (41.0-60); HEMOGLOBIN 12.2 gm/dL (12-16); LYMPHOCYTE ABSOLUTE 0.9 Th/cmm (1.5-3.0); MEAN CORPUSCULAR HEMOGLOBIN 30.8 pg (27.0-31.0); MEAN CORPUSCULAR HGB CONC 33.4 pg (28.0-36.0); MONOCYTE ABSOLUTE 0.8 Th/cmm (0.3-1.0); NEUTROPHILE ABSOLUTE 3.8 Th/cmm (1.8-8.0); PLATELET COUNT 241 Th/cmm (150-400); RED BLOOD COUNT 3.96 Mil/cmm (3.80-5.20); RED CELL DISTRIBUTION WIDTH 13.9 % (11.5-20.0); WHITE BLOOD COUNT 5.6 Th/cmm (4.8-10.8)
[2018-09-12 07:01] LABS: ANION GAP 14.8 (7.0-16.0); BUN - UREA NITROGEN 18 mg/dL (7-25); CALCIUM SERUM 9.7 mg/dL (8.6-10.3); CARBON DIOXIDE 25.8 mEq/L (21.0-31.0); CHLORIDE 100 mEq/L (98-107); CREATININE - SERUM 0.7 mg/dL (0.6-1.2); GLUCOSE 147 mg/dL (70-105); POTASSIUM SERUM 5.6 mEq/L (3.5-5.1); SODIUM SERUM 135 mEq/L (136-145)
--- NOTE | 2018-09-12 07:32 | History & Physical ---
ADMIT DATE: 09/12/2018 PSYCHIATRIC CONSULTATION PATIENT'S AGE: 83. SEX: Female. PHYSICIAN: Dr. Allen. ACUTE COORDINATOR: Dr. Coelho. TYPE OF THE REPORT: Psychiatric consult. REASON FOR THE CONSULT: Agitation. HISTORY OF PRESENT ILLNESS: The patient is an 83-year-old female who was admitted to the hospital because of shingles and to rule out herpes. The patient has been agitated and irritable mood and gets more agitated when staff tries to help her with her ADLs. The patient also has been confused and mumbles and had difficulty to make her needs met or known. PAST PSYCHIATRIC HISTORY: The patient has history of dementia. PAST MEDICAL HISTORY: Bronchial asthma, COPD, history of herpes, gastroesophageal reflux disease and urinary tract infection. SOCIAL HISTORY: [facility]. The patient has no history of alcohol or street drug use. ALLERGIES: PENICILLIN. MENTAL STATUS EXAM: The patient appears older than her stated age. Rash. Disheveled. Easily agitated and irritable mood. The patient was not able to answer any of my questions because of her confusion and the patient was rambling. ASSESSMENT: PRIMARY DIAGNOSIS: Psychosis, not otherwise specified. SECONDARY DIAGNOSIS: Dementia, moderate to severe, with psychotic features. TREATMENT PLAN: We will start the patient on Seroquel 12.5 mg 3 times a day and we will monitor the dose and adjusted. We will also monitor her behavior and we will follow up. Thanks to Dr. Allen and we will follow up with you. JOB# [id number]
--- NOTE | 2018-09-12 08:38 | General Progress Note ---
Subjective - Review of Systems Service Date: 09/12/18 Subjective: Awake, alert, afebrile. No acute distress. Objective - Results Result Diagrams: 09/12/18 06:00 09/12/18 06:00 Recent Labs: Laboratory Last Values WBC 5.6 Th/cmm (4.8-10.8) 09/12/18 06:00 RBC 3.96 Mil/cmm (3.80-5.20) 09/12/18 06:00 Hgb 12.2 gm/dL (12-16) 09/12/18 06:00 Hct 36.5 % (41.0-60) L 09/12/18 06:00 MCV 92.0 fl (81-100) 09/12/18 06:00 MCH 30.8 pg (27.0-31.0) 09/12/18 06:00 MCHC Differential 33.4 pg (28.0-36.0) 09/12/18 06:00 RDW 13.9 % (11.5-20.0) 09/12/18 06:00 Plt Count 241 Th/cmm (150-400) 09/12/18 06:00 MPV 8.4 fl 09/12/18 06:00 Neutrophils % 68.0 % (40.0-80.0) 09/12/18 06:00 Lymphocytes % 16.9 % (20.0-50.0) L 09/12/18 06:00 Monocytes % 13.8 % (2.0-10.0) H 09/12/18 06:00 Eosinophils % 1.1 % (0.0-5.0) 09/12/18 06:00 Basophils % 0.2 % (0.0-2.0) 09/12/18 06:00 PT 10.2 SECONDS (9.5-11.5) 09/10/18 14:50 INR 0.98 (0.5-1.4) 09/10/18 14:50 PTT (Actin FS) 26.7 SECONDS (26.0-38.0) 09/10/18 14:50 Sodium 135 mEq/L (136-145) L 09/12/18 06:00 Potassium 5.6 mEq/L (3.5-5.1) H 09/12/18 06:00 Chloride 100 mEq/L (98-107) 09/12/18 06:00 Carbon Dioxide 25.8 mEq/L (21.0-31.0) 09/12/18 06:00 Anion Gap 14.8 (7.0-16.0) 09/12/18 06:00 BUN 18 mg/dL (7-25) 09/12/18 06:00 Creatinine 0.7 mg/dL (0.6-1.2) 09/12/18 06:00 Est GFR ( Amer) TNP 09/12/18 06:00 Est GFR (Non-Af Amer) TNP 09/12/18 06:00 BUN/Creatinine Ratio 25.7 09/12/18 06:00 Glucose 147 mg/dL (70-105) H 09/12/18 06:00 Whole Bld Lactic Acid 1.78 mmol/L (0.60-1.99) 09/11/18 07:50 Calcium 9.7 mg/dL (8.6-10.3) 09/12/18 06:00 Total Bilirubin 0.3 mg/dL (0.3-1.0) 09/11/18 05:50 AST 32 U/L (13-39) 09/11/18 05:50 ALT 27 U/L (7-52) 09/11/18 05:50 Alkaline Phosphatase 91 U/L (34-104) 09/11/18 05:50 Total Protein 7.0 gm/dL (6.0-8.3) 09/11/18 05:50 Albumin 3.5 gm/dL (3.7-5.3) L 09/11/18 05:50 Globulin 3.5 gm/dL 09/11/18 05:50 Albumin/Globulin Ratio 1.0 (1.0-1.8) 09/11/18 05:50 Urine Source CATH 09/10/18 14:00 Urine Color YELLOW 09/10/18 14:00 Urine Clarity CLOUDY (CLEAR) H 09/10/18 14:00 Urine pH 8.5 (4.6 - 8.0) 09/10/18 14:00 Ur Specific [place] 1.010 (1.005-1.030) 09/10/18 14:00 Urine Protein TRACE mg/dL (NEGATIVE) 09/10/18 14:00 Urine Glucose (UA) NEGATIVE mg/dL (NEGATIVE) 09/10/18 14:00 Urine Ketones NEGATIVE mg/dL (NEGATIVE) 09/10/18 14:00 Urine Blood TRACE (NEGATIVE) 09/10/18 14:00 Urine Nitrate NEGATIVE (NEGATIVE) 09/10/18 14:00 Urine Bilirubin NEGATIVE (NEGATIVE) 09/10/18 14:00 Urine Urobilinogen 0.2 E.U./dL (0.2 - 1.0) 09/10/18 14:00 Ur Leukocyte Esterase LARGE (NEGATIVE) H 09/10/18 14:00 Urine RBC 2-5 /hpf (0-5) 09/10/18 14:00 Urine WBC 6-10 /hpf (0-5) H 09/10/18 14:00 Ur Epithelial Cells MODERATE /lpf (FEW) 09/10/18 14:00 Amorphous Sediment FEW PHOSPHATES (NONE SEEN) 09/10/18 14:00 Urine Bacteria 2+ /hpf (NONE SEEN) H 09/10/18 14:00 - Physical Exam Vitals and I&O: Vital Signs Temp 98.1 F 09/12/18 08:00 Pulse 85 09/12/18 08:00 Resp 18 09/12/18 08:00 BP 124/70 09/12/18 08:00 Pulse Ox 92 09/12/18 08:00 Intake & Output 09/11/18 09/12/18 09/12/18 18:59 06:59 18:59 Intake Total 360 110 Output Total 1 Balance 360 109 Weight (lbs) 52.072 kg 51.664 kg Intake: Intake, IV Amount 360 110 Acyclovir Sodium 500 mg 110 110 In Dextrose 5% 100 ml @ 110 mls/hr IV Q8HR [facility] Rx #:[id number] Vancomycin HCl 1 gm In 250 Sodium Chloride 0.9% 250 ml @ 165 mls/hr IV Q24H [facility] Rx#:[id number] Output: Urine 1 Other: # Voids 3 # Bowel Movements 0 1 Weight Source Bedscale Bedscale Active Medications: Current Medications Acetaminophen (Tylenol 650mg/20.3ml Suspension) 650 mg GT Q4H PRN PRN Reason: Pain or Fever >101 Stop: 11/10/18 00:29 Atorvastatin Calcium (Lipitor) 20 mg GT HS [facility]; Protocol Stop: 11/10/18 20:59 Last Admin: 09/11/18 21:05 Dose: 20 mg Baclofen (Lioresal) 10 mg GT BID [facility] Stop: 11/10/18 08:59 Last Admin: 09/11/18 17:17 Dose: 10 mg Clonazepam (Klonopin) 0.5 mg GT BID [facility]; Protocol Stop: 11/10/18 08:59 Last Admin: 09/11/18 17:17 Dose: 0.5 mg Dextromethorphan/Quinidine (Nuedexta 20mg-10mg) 1 cap GT BID [facility] Stop: 11/10/18 08:59 Last Admin: 09/11/18 17:17 Dose: 1 cap Vancomycin HCl 1 gm/ Sodium (Chloride) 250 mls @ 165 mls/hr IV Q24H [facility] Stop: 11/10/18 10:59 Last Infusion: 09/11/18 12:13 Dose: Infused Acyclovir Sodium 500 mg/ (Dextrose) 110 mls @ 110 mls/hr IV Q8HR [facility] Stop: 11/10/18 12:59 Last Admin: 09/12/18 04:15 Dose: 110 mls/hr Lisinopril (Zestril) 20 mg GT DAILY [facility] Stop: 11/10/18 08:59 Last Admin: 09/11/18 08:57 Dose: Not Given Magnesium Hydroxide (Milk Of Magnesia) 30 ml GT DAILY [facility] Stop: 11/10/18 08:59 Last Admin: 09/11/18 09:03 Dose: 30 ml Miscellaneous (Vancomycin Iv Per Pharmacy) 1 [facility] PRN PRN PRN Reason: PROTOCOL Stop: 11/10/18 07:55 Montelukast Sodium (Singulair) 10 mg GT HS [facility] Stop: 11/10/18 20:59 Last Admin: 09/11/18 21:05 Dose: 10 mg Pantoprazole Sodium (Protonix) 40 mg PO DAILY [facility] Stop: 11/11/18 08:59 Polyethylene Glycol (Miralax) 17 gm GT DAILY [facility] Stop: 11/10/18 08:59 Last Admin: 09/11/18 09:03 Dose: 17 gm Quetiapine Fumarate (Seroquel) 12.5 mg PO TID [facility]; Protocol Stop: 11/11/18 08:59 Senna (Senna) 8.6 mg GT BID [facility] Stop: 11/10/18 08:59 Last Admin: 09/11/18 17:17 Dose: 8.6 mg Sodium Polystyrene Sulfonate (Kayexalate) 30 gm PO X1 ONE Stop: 09/12/18 08:34 General: Alert, No acute distress HEENT: Atraumatic, PERRLA, EOMI Neck: Supple Cardiovascular: Regular rate, Normal S1, Normal S2 Lungs: Clear to auscultation Abdomen: Bowel sounds Extremities: no Clubbing, no Cyanosis Skin: Rash - Procedures Procedures: Procedures Procedure Code Date COLONOSCOPY 45.23 09/28/13 DIAGNOSTIC COLONOSCOPY 92259 09/28/13 EGD BIOPSY SINGLE/MULTIPLE 17522 06/27/[address] GASTROSTOMY TUBE 62602 10/01/14 ESOPHAGOGASTRODUODENOSCOPY [EGD] W/CLOSED BIOPSY 45.16 06/27/14 OTHER ENDOSCOPY OF SM INTEST 45.13 10/01/14 PERCUTANEOUS [ENDOSCOPIC] GASTROSTOMY [PEG] 43.11 03/22/11 REPLACE GASTROSTOMY TUBE 97.02 10/01/14 Assessment/Plan - Problem List Patient Problems: All Active Problems RAISED RED RASH TO LEFT LATERAL NECK (Acute) - Assessment Assessment: Current Active Problems Problem Status Onset RAISED RED RASH TO LEFT LATERAL NECK Acute cellulitis neck/chest wall herpes zoster elevated lactic acid UTI Asthma/COPD Dementia Dysphagia s/p gastrostomy tube Alzheimer's dementia hyperkalemia - Plan Plan: repeat CBC,CMP,lactic acid ID consult psyche consult kayexelate Nutritional Asmnt/Malnutr-PDOC - Dietary Evaluation Malnutrition Findings (Please click <Entered> for more info): Nutritional Asmnt/Malnutrition Start: 09/11/18 15: 37 Text: Status: Complete Freq: Protocol: Document 09/11/18 15:37 [email or web address] (Rec: 09/11/18 15:47 [email or web address]) Nutritional Asmnt/Malnutrition Patient General Information Nutritional Screening High Risk Diagnosis cellulitis neck/chest wall, UTI Pertinent Medical Hx/Surgical Hx dysphagia s/p GT, cellulitis BUE, COPD, dementia, GERD Subjective Information Pt in airborne isolation, RN hanging new container Jevity 1 .2, states tolerating TF with no GRV, confirms TF x 20 hours (off from 9142-0907). Unable to obtain nutrition and wt hx from pt, no family present. 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 +bowel regimen. TF nutrition provision meets 100% kcal and 106% protein needs. Current Diet Order/ Nutrition Support Jevity 1.2 @ 70 ml/hr x 20 hours= 1400ml, 1680kcal, 78g protein, 1130ml H2O Patient / S.O Not Indicated Pertinent Medications Lipitor, MOM, Protonix, Miralax, senna Pertinent Labs 135 Na, 3.5 Alb Nutritional Hx/Data Height 1.57 m Height (Calculated Centimeters) 157.5 Current Weight (lbs) 51.71 kg Weight (Calculated Kilograms) 51.7 Weight (Calculated Grams) 33167.5 [place] Body Weight 110 lb Body Mass Index (BMI) 20.8 Weight Status Approriate GI Symptoms GI Symptoms None Last BM none noted in chart Difficult in: Swallowing Skin Integrity/Comment: no pressure injury Estimated Nutritional Goals BEE in Kcals: Using Current wt Calories/Kcals/Kg 25-30 Kcals Calculated 4226-8173 Protein: Using Current wt Protein g/k.1-1.4 Protein Calculated 57-73 Fluid: ml 2910-5990 Nutritional Problem 1. Problem Problem Swallow difficulty Etiology dysphagia Signs/Symptoms: GT Intervention/Recommendation Comments 1. continue Jevity 1.2 at 70 ml/hr x 20 hours 2. 2. Monitor TF rate, tolerance, wt, skin integrity and labs 3. F/U as high risk in 2-3 days Expected Outcomes/Goals Expected Outcomes/Goals 1. Pt to meet at least 90% of nutritional needs via nutrition support with tolerance 2. Wt stability, skin to remain intact, labs to approach WNL. Ksenia Herrera RD
[2018-09-12] MEDS: POLYETHYLENE GLYCOL 3350 17 GM PACK GT SCH (09:21)
[2018-09-12] MEDS: Magnesium Hydroxide (MOM) 30 mL UDC GT SCH (09:21)
[2018-09-12] MEDS: Dextromethorphan/Quinidine 20mg/10mg Cap GT SCH ×2 (09:21→16:51)
[2018-09-12] MEDS: Pantoprazole 40 mg EC Tab PO SCH (09:21)
--- NOTE | 2018-09-12 14:03 | Infectious Disease Prog Note ---
Infectious Disease Subjective - Review of Systems Service Date: 09/12/18 Subjective: There is no change, no the rash over the left side of the neck. Infectious Disease Objective - Results Result Diagrams: 09/12/18 06:00 09/12/18 06:00 Recent Labs: Laboratory Last Values WBC 5.6 Th/cmm (4.8-10.8) 09/12/18 06:00 RBC 3.96 Mil/cmm (3.80-5.20) 09/12/18 06:00 Hgb 12.2 gm/dL (12-16) 09/12/18 06:00 Hct 36.5 % (41.0-60) L 09/12/18 06:00 MCV 92.0 fl (81-100) 09/12/18 06:00 MCH 30.8 pg (27.0-31.0) 09/12/18 06:00 MCHC Differential 33.4 pg (28.0-36.0) 09/12/18 06:00 RDW 13.9 % (11.5-20.0) 09/12/18 06:00 Plt Count 241 Th/cmm (150-400) 09/12/18 06:00 MPV 8.4 fl 09/12/18 06:00 Neutrophils % 68.0 % (40.0-80.0) 09/12/18 06:00 Lymphocytes % 16.9 % (20.0-50.0) L 09/12/18 06:00 Monocytes % 13.8 % (2.0-10.0) H 09/12/18 06:00 Eosinophils % 1.1 % (0.0-5.0) 09/12/18 06:00 Basophils % 0.2 % (0.0-2.0) 09/12/18 06:00 PT 10.2 SECONDS (9.5-11.5) 09/10/18 14:50 INR 0.98 (0.5-1.4) 09/10/18 14:50 PTT (Actin FS) 26.7 SECONDS (26.0-38.0) 09/10/18 14:50 Sodium 135 mEq/L (136-145) L 09/12/18 06:00 Potassium 5.6 mEq/L (3.5-5.1) H 09/12/18 06:00 Chloride 100 mEq/L (98-107) 09/12/18 06:00 Carbon Dioxide 25.8 mEq/L (21.0-31.0) 09/12/18 06:00 Anion Gap 14.8 (7.0-16.0) 09/12/18 06:00 BUN 18 mg/dL (7-25) 09/12/18 06:00 Creatinine 0.7 mg/dL (0.6-1.2) 09/12/18 06:00 Est GFR ( Amer) TNP 09/12/18 06:00 Est GFR (Non-Af Amer) TNP 09/12/18 06:00 BUN/Creatinine Ratio 25.7 09/12/18 06:00 Glucose 147 mg/dL (70-105) H 09/12/18 06:00 POC Glucose 112 MG/DL (70 - 105) H 09/12/18 12:12 Whole Bld Lactic Acid 1.78 mmol/L (0.60-1.99) 09/11/18 07:50 Calcium 9.7 mg/dL (8.6-10.3) 09/12/18 06:00 Total Bilirubin 0.3 mg/dL (0.3-1.0) 09/11/18 05:50 AST 32 U/L (13-39) 09/11/18 05:50 ALT 27 U/L (7-52) 09/11/18 05:50 Alkaline Phosphatase 91 U/L (34-104) 09/11/18 05:50 Total Protein 7.0 gm/dL (6.0-8.3) 09/11/18 05:50 Albumin 3.5 gm/dL (3.7-5.3) L 09/11/18 05:50 Globulin 3.5 gm/dL 09/11/18 05:50 Albumin/Globulin Ratio 1.0 (1.0-1.8) 09/11/18 05:50 Urine Source CATH 09/10/18 14:00 Urine Color YELLOW 09/10/18 14:00 Urine Clarity CLOUDY (CLEAR) H 09/10/18 14:00 Urine pH 8.5 (4.6 - 8.0) 09/10/18 14:00 Ur Specific [place] 1.010 (1.005-1.030) 09/10/18 14:00 Urine Protein TRACE mg/dL (NEGATIVE) 09/10/18 14:00 Urine Glucose (UA) NEGATIVE mg/dL (NEGATIVE) 09/10/18 14:00 Urine Ketones NEGATIVE mg/dL (NEGATIVE) 09/10/18 14:00 Urine Blood TRACE (NEGATIVE) 09/10/18 14:00 Urine Nitrate NEGATIVE (NEGATIVE) 09/10/18 14:00 Urine Bilirubin NEGATIVE (NEGATIVE) 09/10/18 14:00 Urine Urobilinogen 0.2 E.U./dL (0.2 - 1.0) 09/10/18 14:00 Ur Leukocyte Esterase LARGE (NEGATIVE) H 09/10/18 14:00 Urine RBC 2-5 /hpf (0-5) 09/10/18 14:00 Urine WBC 6-10 /hpf (0-5) H 09/10/18 14:00 Ur Epithelial Cells MODERATE /lpf (FEW) 09/10/18 14:00 Amorphous Sediment FEW PHOSPHATES (NONE SEEN) 09/10/18 14:00 Urine Bacteria 2+ /hpf (NONE SEEN) H 09/10/18 14:00 Vancomycin Trough 5.6 ug/mL (5-10) 09/12/18 10:00 - Physical Exam Vitals and I&O: Vital Signs Temp 97.6 F 09/12/18 11:35 Pulse 82 09/12/18 11:35 Resp 18 09/12/18 11:35 BP 123/78 09/12/18 11:35 Pulse Ox 95 09/12/18 11:35 Intake & Output 09/11/18 09/12/18 09/12/18 18:59 06:59 18:59 Intake Total 360 110 Output Total 1 Balance 360 109 Weight (lbs) 52.072 kg 51.664 kg Intake: Intake, IV Amount 360 110 Acyclovir Sodium 500 mg 110 110 In Dextrose 5% 100 ml @ 110 mls/hr IV Q8HR [facility] Rx #:[id number] Vancomycin HCl 1 gm In 250 Sodium Chloride 0.9% 250 ml @ 165 mls/hr IV Q24H [facility] Rx#:[id number] Output: Urine 1 Other: # Voids 3 # Bowel Movements 0 1 Weight Source Bedscale Bedscale Active Medications: Current Medications Acetaminophen (Tylenol 650mg/20.3ml Suspension) 650 mg GT Q4H PRN PRN Reason: Pain or Fever >101 Stop: 11/10/18 00:29 Atorvastatin Calcium (Lipitor) 20 mg GT HS [facility]; Protocol Stop: 11/10/18 20:59 Last Admin: 09/11/18 21:05 Dose: 20 mg Baclofen (Lioresal) 10 mg GT BID [facility] Stop: 11/10/18 08:59 Last Admin: 09/12/18 09:21 Dose: 10 mg Clonazepam (Klonopin) 0.5 mg GT BID [facility]; Protocol Stop: 11/10/18 08:59 Last Admin: 09/12/18 09:22 Dose: 0.5 mg Dextromethorphan/Quinidine (Nuedexta 20mg-10mg) 1 cap GT BID [facility] Stop: 11/10/18 08:59 Last Admin: 09/12/18 09:21 Dose: 1 cap Acyclovir Sodium 500 mg/ (Dextrose) 110 mls @ 110 mls/hr IV Q8HR [facility] Stop: 11/10/18 12:59 Last Admin: 09/12/18 04:15 Dose: 110 mls/hr Vancomycin HCl 0.75 gm/ Sodium (Chloride) 250 mls @ 165 mls/hr IV Q12H [facility] Stop: 11/11/18 10:44 Last Admin: 09/12/18 11:05 Dose: 165 mls/hr Lisinopril (Zestril) 20 mg GT DAILY [facility] Stop: 11/10/18 08:59 Last Admin: 09/12/18 09:22 Dose: 20 mg Magnesium Hydroxide (Milk Of Magnesia) 30 ml GT DAILY [facility] Stop: 11/10/18 08:59 Last Admin: 09/12/18 09:21 Dose: 30 ml Miscellaneous (Vancomycin Iv Per Pharmacy) 1 [facility] PRN PRN PRN Reason: PROTOCOL Stop: 11/10/18 07:55 Montelukast Sodium (Singulair) 10 mg GT HS [facility] Stop: 11/10/18 20:59 Last Admin: 09/11/18 21:05 Dose: 10 mg Pantoprazole Sodium (Protonix) 40 mg PO DAILY [facility] Stop: 11/11/18 08:59 Last Admin: 09/12/18 09:21 Dose: 40 mg Polyethylene Glycol (Miralax) 17 gm GT DAILY [facility] Stop: 11/10/18 08:59 Last Admin: 09/12/18 09:21 Dose: 17 gm Quetiapine Fumarate (Seroquel) 12.5 mg PO TID [facility]; Protocol Stop: 11/11/18 08:59 Last Admin: 09/12/18 09:22 Dose: 12.5 mg Senna (Senna) 8.6 mg GT BID [facility] Stop: 11/10/18 08:59 Last Admin: 09/12/18 09:22 Dose: 8.6 mg General: no acute distress, well developed, well nourished HEENT: atraumatic, normocephalic, PERRLA, EOMI Neck: supple, no thyromegaly Cardiovascular: S1S2, regular Lungs: clear to auscultation bilaterally, clear to percussion Abdomen: soft, no tender, no distended, no rebound Extremities: no cyanosis, no clubbing, no edema Neurological: awake, alert, oriented Skin: intact, rash (Over the left side of neck,left shoulder and left upper back ) - Procedures Procedures: Procedures Procedure Code Date COLONOSCOPY 45.23 09/28/13 DIAGNOSTIC COLONOSCOPY 20679 09/28/13 EGD BIOPSY SINGLE/MULTIPLE 75631 06/27/[address] GASTROSTOMY TUBE 91566 10/01/14 ESOPHAGOGASTRODUODENOSCOPY [EGD] W/CLOSED BIOPSY 45.16 06/27/14 OTHER ENDOSCOPY OF SM INTEST 45.13 10/01/14 PERCUTANEOUS [ENDOSCOPIC] GASTROSTOMY [PEG] 43.11 03/22/11 REPLACE GASTROSTOMY TUBE 97.02 10/01/14 Infectious Disease Assmt/Plan - Problem List Patient Problems: All Active Problems RAISED RED RASH TO LEFT LATERAL NECK (Acute) - Assessment Assessment: 1. [place]. 2. ? secondary infection. 3. Dementia. 4. COPD/Asthma - Plan Plan: CPM. Nutritional Asmnt/Malnutr-PDOC - Dietary Evaluation Malnutrition Findings (Please click <Entered> for more info): Nutritional Asmnt/Malnutrition Start: 09/11/18 15: 37 Text: Status: Complete Freq: Protocol: Document 09/11/18 15:37 [email or web address] (Rec: 09/11/18 15:47 [email or web address]) Nutritional Asmnt/Malnutrition Patient General Information Nutritional Screening High Risk Diagnosis cellulitis neck/chest wall, UTI Pertinent Medical Hx/Surgical Hx dysphagia s/p GT, cellulitis BUE, COPD, dementia, GERD Subjective Information Pt in airborne isolation, RN hanging new container Jevity 1 .2, states tolerating TF with no GRV, confirms TF x 20 hours (off from 1472-7015). Unable to obtain nutrition and wt hx from pt, no family present. 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 +bowel regimen. TF nutrition provision meets 100% kcal and 106% protein needs. Current Diet Order/ Nutrition Support Jevity 1.2 @ 70 ml/hr x 20 hours= 1400ml, 1680kcal, 78g protein, 1130ml H2O Patient / S.O Not Indicated Pertinent Medications Lipitor, MOM, Protonix, Miralax, senna Pertinent Labs 135 Na, 3.5 Alb Nutritional Hx/Data Height 1.57 m Height (Calculated Centimeters) 157.5 Current Weight (lbs) 51.71 kg Weight (Calculated Kilograms) 51.7 Weight (Calculated Grams) 11090.5 [place] Body Weight 110 lb Body Mass Index (BMI) 20.8 Weight Status Approriate GI Symptoms GI Symptoms None Last BM none noted in chart Difficult in: Swallowing Skin Integrity/Comment: no pressure injury Estimated Nutritional Goals BEE in Kcals: Using Current wt Calories/Kcals/Kg 25-30 Kcals Calculated 2479-6857 Protein: Using Current wt Protein g/k.1-1.4 Protein Calculated 57-73 Fluid: ml 7833-5713 Nutritional Problem 1. Problem Problem Swallow difficulty Etiology dysphagia Signs/Symptoms: GT Intervention/Recommendation Comments 1. continue Jevity 1.2 at 70 ml/hr x 20 hours 2. 2. Monitor TF rate, tolerance, wt, skin integrity and labs 3. F/U as high risk in 2-3 days Expected Outcomes/Goals Expected Outcomes/Goals 1. Pt to meet at least 90% of nutritional needs via nutrition support with tolerance 2. Wt stability, skin to remain intact, labs to approach WNL. Ksenia Herrera RD
[2018-09-12] MEDS: Atorvastatin Calcium 10 MG TAB GT SCH (21:26)
[2018-09-13] MEDS: DEXTROSE 5% IV SCH ×3 (04:33→20:10)
[2018-09-13] MEDS: ACYCLOVIR SODIUM IV SCH ×3 (04:33→20:10)
--- NOTE | 2018-09-13 07:50 | General Progress Note ---
Subjective - Review of Systems Service Date: 09/13/18 Subjective: Awake, alert, afebrile. No acute distress. Objective - Results Result Diagrams: 09/12/18 06:00 09/12/18 06:00 Recent Labs: Laboratory Last Values WBC 5.6 Th/cmm (4.8-10.8) 09/12/18 06:00 RBC 3.96 Mil/cmm (3.80-5.20) 09/12/18 06:00 Hgb 12.2 gm/dL (12-16) 09/12/18 06:00 Hct 36.5 % (41.0-60) L 09/12/18 06:00 MCV 92.0 fl (81-100) 09/12/18 06:00 MCH 30.8 pg (27.0-31.0) 09/12/18 06:00 MCHC Differential 33.4 pg (28.0-36.0) 09/12/18 06:00 RDW 13.9 % (11.5-20.0) 09/12/18 06:00 Plt Count 241 Th/cmm (150-400) 09/12/18 06:00 MPV 8.4 fl 09/12/18 06:00 Neutrophils % 68.0 % (40.0-80.0) 09/12/18 06:00 Lymphocytes % 16.9 % (20.0-50.0) L 09/12/18 06:00 Monocytes % 13.8 % (2.0-10.0) H 09/12/18 06:00 Eosinophils % 1.1 % (0.0-5.0) 09/12/18 06:00 Basophils % 0.2 % (0.0-2.0) 09/12/18 06:00 PT 10.2 SECONDS (9.5-11.5) 09/10/18 14:50 INR 0.98 (0.5-1.4) 09/10/18 14:50 PTT (Actin FS) 26.7 SECONDS (26.0-38.0) 09/10/18 14:50 Sodium 135 mEq/L (136-145) L 09/12/18 06:00 Potassium 5.6 mEq/L (3.5-5.1) H 09/12/18 06:00 Chloride 100 mEq/L (98-107) 09/12/18 06:00 Carbon Dioxide 25.8 mEq/L (21.0-31.0) 09/12/18 06:00 Anion Gap 14.8 (7.0-16.0) 09/12/18 06:00 BUN 18 mg/dL (7-25) 09/12/18 06:00 Creatinine 0.7 mg/dL (0.6-1.2) 09/12/18 06:00 Est GFR ( Amer) TNP 09/12/18 06:00 Est GFR (Non-Af Amer) TNP 09/12/18 06:00 BUN/Creatinine Ratio 25.7 09/12/18 06:00 Glucose 147 mg/dL (70-105) H 09/12/18 06:00 POC Glucose 112 MG/DL (70 - 105) H 09/12/18 12:12 Whole Bld Lactic Acid 1.78 mmol/L (0.60-1.99) 09/11/18 07:50 Calcium 9.7 mg/dL (8.6-10.3) 09/12/18 06:00 Total Bilirubin 0.3 mg/dL (0.3-1.0) 09/11/18 05:50 AST 32 U/L (13-39) 09/11/18 05:50 ALT 27 U/L (7-52) 09/11/18 05:50 Alkaline Phosphatase 91 U/L (34-104) 09/11/18 05:50 Total Protein 7.0 gm/dL (6.0-8.3) 09/11/18 05:50 Albumin 3.5 gm/dL (3.7-5.3) L 09/11/18 05:50 Globulin 3.5 gm/dL 09/11/18 05:50 Albumin/Globulin Ratio 1.0 (1.0-1.8) 09/11/18 05:50 Urine Source CATH 09/10/18 14:00 Urine Color YELLOW 09/10/18 14:00 Urine Clarity CLOUDY (CLEAR) H 09/10/18 14:00 Urine pH 8.5 (4.6 - 8.0) 09/10/18 14:00 Ur Specific [place] 1.010 (1.005-1.030) 09/10/18 14:00 Urine Protein TRACE mg/dL (NEGATIVE) 09/10/18 14:00 Urine Glucose (UA) NEGATIVE mg/dL (NEGATIVE) 09/10/18 14:00 Urine Ketones NEGATIVE mg/dL (NEGATIVE) 09/10/18 14:00 Urine Blood TRACE (NEGATIVE) 09/10/18 14:00 Urine Nitrate NEGATIVE (NEGATIVE) 09/10/18 14:00 Urine Bilirubin NEGATIVE (NEGATIVE) 09/10/18 14:00 Urine Urobilinogen 0.2 E.U./dL (0.2 - 1.0) 09/10/18 14:00 Ur Leukocyte Esterase LARGE (NEGATIVE) H 09/10/18 14:00 Urine RBC 2-5 /hpf (0-5) 09/10/18 14:00 Urine WBC 6-10 /hpf (0-5) H 09/10/18 14:00 Ur Epithelial Cells MODERATE /lpf (FEW) 09/10/18 14:00 Amorphous Sediment FEW PHOSPHATES (NONE SEEN) 09/10/18 14:00 Urine Bacteria 2+ /hpf (NONE SEEN) H 09/10/18 14:00 Vancomycin Trough 5.6 ug/mL (5-10) 09/12/18 10:00 - Physical Exam Vitals and I&O: Vital Signs Temp 99.5 F 09/13/18 04:00 Pulse 73 09/13/18 04:00 Resp 18 09/13/18 04:00 BP 132/50 09/13/18 04:00 Pulse Ox 96 09/13/18 04:00 Intake & Output 09/12/18 09/13/18 09/13/18 18:59 06:59 18:59 Intake Total 960 635 Balance 960 635 Weight (lbs) 51.664 kg 51.256 kg Intake: Intake, IV Amount 360 470 Acyclovir Sodium 500 mg 110 220 In Dextrose 5% 100 ml @ 110 mls/hr IV Q8HR [facility] Rx #:[id number] Vancomycin HCl 0.75 gm In 250 250 Sodium Chloride 0.9% 250 ml @ 165 mls/hr IV Q12H [facility] Rx#:[id number] Tube Feeding 600 165 Other: # Voids 3 2 # Bowel Movements 0 Weight Source Bedscale Bedscale Active Medications: Current Medications Acetaminophen (Tylenol 650mg/20.3ml Suspension) 650 mg GT Q4H PRN PRN Reason: Pain or Fever >101 Stop: 11/10/18 00:29 Atorvastatin Calcium (Lipitor) 20 mg GT HS [facility]; Protocol Stop: 11/10/18 20:59 Last Admin: 09/12/18 21:26 Dose: 20 mg Baclofen (Lioresal) 10 mg GT BID [facility] Stop: 11/10/18 08:59 Last Admin: 09/12/18 16:51 Dose: 10 mg Clonazepam (Klonopin) 0.5 mg GT BID [facility]; Protocol Stop: 11/10/18 08:59 Last Admin: 09/12/18 16:52 Dose: 0.5 mg Dextromethorphan/Quinidine (Nuedexta 20mg-10mg) 1 cap GT BID [facility] Stop: 11/10/18 08:59 Last Admin: 09/12/18 16:51 Dose: 1 cap Acyclovir Sodium 500 mg/ (Dextrose) 110 mls @ 110 mls/hr IV Q8HR [facility] Stop: 11/10/18 12:59 Last Infusion: 09/13/18 05:33 Dose: Infused Vancomycin HCl 0.75 gm/ Sodium (Chloride) 250 mls @ 165 mls/hr IV Q12H [facility] Stop: 11/11/18 10:44 Last Infusion: 09/13/18 00:17 Dose: Infused Lisinopril (Zestril) 20 mg GT DAILY [facility] Stop: 11/10/18 08:59 Last Admin: 09/12/18 09:22 Dose: 20 mg Magnesium Hydroxide (Milk Of Magnesia) 30 ml GT DAILY [facility] Stop: 11/10/18 08:59 Last Admin: 09/12/18 09:21 Dose: 30 ml Miscellaneous (Vancomycin Iv Per Pharmacy) 1 ea MC PRN PRN PRN Reason: PROTOCOL Stop: 11/10/18 07:55 Montelukast Sodium (Singulair) 10 mg GT HS [facility] Stop: 11/10/18 20:59 Last Admin: 09/12/18 21:28 Dose: 10 mg Mupirocin (Bactroban Oint) 1 appl NS BID [facility] Stop: 09/17/18 09:01 Last Admin: 09/12/18 16:55 Dose: 1 appl Pantoprazole Sodium (Protonix) 40 mg PO DAILY [facility] Stop: 11/11/18 08:59 Last Admin: 09/12/18 09:21 Dose: 40 mg Polyethylene Glycol (Miralax) 17 gm GT DAILY [facility] Stop: 11/10/18 08:59 Last Admin: 09/12/18 09:21 Dose: 17 gm Quetiapine Fumarate (Seroquel) 12.5 mg PO TID [facility]; Protocol Stop: 11/11/18 08:59 Last Admin: 09/12/18 21:27 Dose: 12.5 mg Senna (Senna) 8.6 mg GT BID [facility] Stop: 11/10/18 08:59 Last Admin: 09/12/18 16:51 Dose: 8.6 mg General: Alert, No acute distress HEENT: Atraumatic, PERRLA, EOMI Neck: Supple Cardiovascular: Regular rate, Normal S1, Normal S2 Lungs: Clear to auscultation Abdomen: Bowel sounds Extremities: no Clubbing, no Cyanosis Skin: Rash - Procedures Procedures: Procedures Procedure Code Date COLONOSCOPY 45.23 09/28/13 DIAGNOSTIC COLONOSCOPY 62365 09/28/13 EGD BIOPSY SINGLE/MULTIPLE 47708 06/27/[address] GASTROSTOMY TUBE 49811 10/01/14 ESOPHAGOGASTRODUODENOSCOPY [EGD] W/CLOSED BIOPSY 45.16 06/27/14 OTHER ENDOSCOPY OF SM INTEST 45.13 10/01/14 PERCUTANEOUS [ENDOSCOPIC] GASTROSTOMY [PEG] 43.11 03/22/11 REPLACE GASTROSTOMY TUBE 97.02 10/01/14 Assessment/Plan - Problem List Patient Problems: All Active Problems RAISED RED RASH TO LEFT LATERAL NECK (Acute) - Assessment Assessment: Current Active Problems Problem Status Onset RAISED RED RASH TO LEFT LATERAL NECK Acute cellulitis neck/chest wall herpes zoster elevated lactic acid UTI +Proteus Mirabilis Nares + MRSA Asthma/COPD Dementia Dysphagia s/p gastrostomy tube Alzheimer's dementia hyperkalemia --gave Kayexelate, check BMP today - Plan Plan: repeat CBC,CMP,lactic acid ID consult psyche consult kayexelate Nutritional Asmnt/Malnutr-PDOC - Dietary Evaluation Malnutrition Findings (Please click <Entered> for more info): Nutritional Asmnt/Malnutrition Start: 09/11/18 15: 37 Text: Status: Complete Freq: Protocol: Document 09/11/18 15:37 [email or web address] (Rec: 09/11/18 15:47 [email or web address]) Nutritional Asmnt/Malnutrition Patient General Information Nutritional Screening High Risk Diagnosis cellulitis neck/chest wall, UTI Pertinent Medical Hx/Surgical Hx dysphagia s/p GT, cellulitis BUE, COPD, dementia, GERD Subjective Information Pt in airborne isolation, RN hanging new container Jevity 1 .2, states tolerating TF with no GRV, confirms TF x 20 hours (off from 8995-5222). Unable to obtain nutrition and wt hx from pt, no family present. No noted BM however SALES CONSULTING DIRECTOR believes likely with BM earlier today. +bowel regimen. TF nutrition provision meets 100% kcal and 106% protein needs. Current Diet Order/ Nutrition Support Jevity 1.2 @ 70 ml/hr x 20 hours= 1400ml, 1680kcal, 78g protein, 1130ml H2O Patient / S.O Not Indicated Pertinent Medications Lipitor, MOM, Protonix, Miralax, senna Pertinent Labs 135 Na, 3.5 Alb Nutritional Hx/Data Height 1.57 m Height (Calculated Centimeters) 157.5 Current Weight (lbs) 51.71 kg Weight (Calculated Kilograms) 51.7 Weight (Calculated Grams) 32286.5 [place] Body Weight 110 lb Body Mass Index (BMI) 20.8 Weight Status Approriate GI Symptoms GI Symptoms None Last BM none noted in chart Difficult in: Swallowing Skin Integrity/Comment: no pressure injury Estimated Nutritional Goals BEE in Kcals: Using Current wt Calories/Kcals/Kg 25-30 Kcals Calculated 3802-6415 Protein: Using Current wt Protein g/k.1-1.4 Protein Calculated 57-73 Fluid: ml 4459-9146 Nutritional Problem 1. Problem Problem Swallow difficulty Etiology dysphagia Signs/Symptoms: GT Intervention/Recommendation Comments 1. continue Jevity 1.2 at 70 ml/hr x 20 hours 2. 2. Monitor TF rate, tolerance, wt, skin integrity and labs 3. F/U as high risk in 2-3 days Expected Outcomes/Goals Expected Outcomes/Goals 1. Pt to meet at least 90% of nutritional needs via nutrition support with tolerance 2. Wt stability, skin to remain intact, labs to approach WNL. Ksenia Herrera RD
--- NOTE | 2018-09-13 08:31 | Infectious Disease Prog Note ---
Infectious Disease Subjective - Review of Systems Service Date: 09/13/18 Subjective: There is no change, no the rash over the left side of the neck. Infectious Disease Objective - Results Result Diagrams: 09/12/18 06:00 09/12/18 06:00 Recent Labs: Laboratory Last Values WBC 5.6 Th/cmm (4.8-10.8) 09/12/18 06:00 RBC 3.96 Mil/cmm (3.80-5.20) 09/12/18 06:00 Hgb 12.2 gm/dL (12-16) 09/12/18 06:00 Hct 36.5 % (41.0-60) L 09/12/18 06:00 MCV 92.0 fl (81-100) 09/12/18 06:00 MCH 30.8 pg (27.0-31.0) 09/12/18 06:00 MCHC Differential 33.4 pg (28.0-36.0) 09/12/18 06:00 RDW 13.9 % (11.5-20.0) 09/12/18 06:00 Plt Count 241 Th/cmm (150-400) 09/12/18 06:00 MPV 8.4 fl 09/12/18 06:00 Neutrophils % 68.0 % (40.0-80.0) 09/12/18 06:00 Lymphocytes % 16.9 % (20.0-50.0) L 09/12/18 06:00 Monocytes % 13.8 % (2.0-10.0) H 09/12/18 06:00 Eosinophils % 1.1 % (0.0-5.0) 09/12/18 06:00 Basophils % 0.2 % (0.0-2.0) 09/12/18 06:00 PT 10.2 SECONDS (9.5-11.5) 09/10/18 14:50 INR 0.98 (0.5-1.4) 09/10/18 14:50 PTT (Actin FS) 26.7 SECONDS (26.0-38.0) 09/10/18 14:50 Sodium 135 mEq/L (136-145) L 09/12/18 06:00 Potassium 5.6 mEq/L (3.5-5.1) H 09/12/18 06:00 Chloride 100 mEq/L (98-107) 09/12/18 06:00 Carbon Dioxide 25.8 mEq/L (21.0-31.0) 09/12/18 06:00 Anion Gap 14.8 (7.0-16.0) 09/12/18 06:00 BUN 18 mg/dL (7-25) 09/12/18 06:00 Creatinine 0.7 mg/dL (0.6-1.2) 09/12/18 06:00 Est GFR ( Amer) TNP 09/12/18 06:00 Est GFR (Non-Af Amer) TNP 09/12/18 06:00 BUN/Creatinine Ratio 25.7 09/12/18 06:00 Glucose 147 mg/dL (70-105) H 09/12/18 06:00 POC Glucose 112 MG/DL (70 - 105) H 09/12/18 12:12 Whole Bld Lactic Acid 1.78 mmol/L (0.60-1.99) 09/11/18 07:50 Calcium 9.7 mg/dL (8.6-10.3) 09/12/18 06:00 Total Bilirubin 0.3 mg/dL (0.3-1.0) 09/11/18 05:50 AST 32 U/L (13-39) 09/11/18 05:50 ALT 27 U/L (7-52) 09/11/18 05:50 Alkaline Phosphatase 91 U/L (34-104) 09/11/18 05:50 Total Protein 7.0 gm/dL (6.0-8.3) 09/11/18 05:50 Albumin 3.5 gm/dL (3.7-5.3) L 09/11/18 05:50 Globulin 3.5 gm/dL 09/11/18 05:50 Albumin/Globulin Ratio 1.0 (1.0-1.8) 09/11/18 05:50 Urine Source CATH 09/10/18 14:00 Urine Color YELLOW 09/10/18 14:00 Urine Clarity CLOUDY (CLEAR) H 09/10/18 14:00 Urine pH 8.5 (4.6 - 8.0) 09/10/18 14:00 Ur Specific [place] 1.010 (1.005-1.030) 09/10/18 14:00 Urine Protein TRACE mg/dL (NEGATIVE) 09/10/18 14:00 Urine Glucose (UA) NEGATIVE mg/dL (NEGATIVE) 09/10/18 14:00 Urine Ketones NEGATIVE mg/dL (NEGATIVE) 09/10/18 14:00 Urine Blood TRACE (NEGATIVE) 09/10/18 14:00 Urine Nitrate NEGATIVE (NEGATIVE) 09/10/18 14:00 Urine Bilirubin NEGATIVE (NEGATIVE) 09/10/18 14:00 Urine Urobilinogen 0.2 E.U./dL (0.2 - 1.0) 09/10/18 14:00 Ur Leukocyte Esterase LARGE (NEGATIVE) H 09/10/18 14:00 Urine RBC 2-5 /hpf (0-5) 09/10/18 14:00 Urine WBC 6-10 /hpf (0-5) H 09/10/18 14:00 Ur Epithelial Cells MODERATE /lpf (FEW) 09/10/18 14:00 Amorphous Sediment FEW PHOSPHATES (NONE SEEN) 09/10/18 14:00 Urine Bacteria 2+ /hpf (NONE SEEN) H 09/10/18 14:00 Vancomycin Trough 5.6 ug/mL (5-10) 09/12/18 10:00 - Physical Exam Vitals and I&O: Vital Signs Temp 99.5 F 09/13/18 04:00 Pulse 73 09/13/18 04:00 Resp 18 09/13/18 04:00 BP 132/50 09/13/18 04:00 Pulse Ox 96 09/13/18 04:00 Intake & Output 09/12/18 09/13/18 09/13/18 18:59 06:59 18:59 Intake Total 960 635 Balance 960 635 Weight (lbs) 51.664 kg 51.256 kg Intake: Intake, IV Amount 360 470 Acyclovir Sodium 500 mg 110 220 In Dextrose 5% 100 ml @ 110 mls/hr IV Q8HR [facility] Rx #:[id number] Vancomycin HCl 0.75 gm In 250 250 Sodium Chloride 0.9% 250 ml @ 165 mls/hr IV Q12H [facility] Rx#:[id number] Tube Feeding 600 165 Other: # Voids 3 2 # Bowel Movements 0 Weight Source Bedscale Bedscale Active Medications: Current Medications Acetaminophen (Tylenol 650mg/20.3ml Suspension) 650 mg GT Q4H PRN PRN Reason: Pain or Fever >101 Stop: 11/10/18 00:29 Atorvastatin Calcium (Lipitor) 20 mg GT HS [facility]; Protocol Stop: 11/10/18 20:59 Last Admin: 09/12/18 21:26 Dose: 20 mg Baclofen (Lioresal) 10 mg GT BID [facility] Stop: 11/10/18 08:59 Last Admin: 09/12/18 16:51 Dose: 10 mg Clonazepam (Klonopin) 0.5 mg GT BID [facility]; Protocol Stop: 11/10/18 08:59 Last Admin: 09/12/18 16:52 Dose: 0.5 mg Dextromethorphan/Quinidine (Nuedexta 20mg-10mg) 1 cap GT BID [facility] Stop: 11/10/18 08:59 Last Admin: 09/12/18 16:51 Dose: 1 cap Acyclovir Sodium 500 mg/ (Dextrose) 110 mls @ 110 mls/hr IV Q8HR [facility] Stop: 11/10/18 12:59 Last Infusion: 09/13/18 05:33 Dose: Infused Vancomycin HCl 0.75 gm/ Sodium (Chloride) 250 mls @ 165 mls/hr IV Q12H [facility] Stop: 11/11/18 10:44 Last Infusion: 09/13/18 00:17 Dose: Infused Lisinopril (Zestril) 20 mg GT DAILY [facility] Stop: 11/10/18 08:59 Last Admin: 09/12/18 09:22 Dose: 20 mg Magnesium Hydroxide (Milk Of Magnesia) 30 ml GT DAILY [facility] Stop: 11/10/18 08:59 Last Admin: 09/12/18 09:21 Dose: 30 ml Miscellaneous (Vancomycin Iv Per Pharmacy) 1 ea PRN PRN PRN Reason: PROTOCOL Stop: 11/10/18 07:55 Montelukast Sodium (Singulair) 10 mg GT HS [facility] Stop: 11/10/18 20:59 Last Admin: 09/12/18 21:28 Dose: 10 mg Mupirocin (Bactroban Oint) 1 appl NS BID [facility] Stop: 09/17/18 09:01 Last Admin: 09/12/18 16:55 Dose: 1 appl Pantoprazole Sodium (Protonix) 40 mg PO DAILY [facility] Stop: 11/11/18 08:59 Last Admin: 09/12/18 09:21 Dose: 40 mg Polyethylene Glycol (Miralax) 17 gm GT DAILY [facility] Stop: 11/10/18 08:59 Last Admin: 09/12/18 09:21 Dose: 17 gm Quetiapine Fumarate (Seroquel) 12.5 mg PO TID [facility]; Protocol Stop: 11/11/18 08:59 Last Admin: 09/12/18 21:27 Dose: 12.5 mg Senna (Senna) 8.6 mg GT BID [facility] Stop: 11/10/18 08:59 Last Admin: 09/12/18 16:51 Dose: 8.6 mg General: no acute distress HEENT: atraumatic, normocephalic, PERRLA, EOMI, moist mucous membrane Neck: supple, no thyromegaly Cardiovascular: S1S2, regular Lungs: clear to auscultation bilaterally, clear to percussion, no crackles, no wheeze Abdomen: soft, no tender, no distended Extremities: no cyanosis, no clubbing, no edema Neurological: awake, alert Skin: rash (no change.) - Procedures Procedures: Procedures Procedure Code Date COLONOSCOPY 45.23 09/28/13 DIAGNOSTIC COLONOSCOPY 38818 09/28/13 EGD BIOPSY SINGLE/MULTIPLE 94090 06/27/[address] GASTROSTOMY TUBE 71732 10/01/14 ESOPHAGOGASTRODUODENOSCOPY [EGD] W/CLOSED BIOPSY 45.16 06/27/14 OTHER ENDOSCOPY OF SM INTEST 45.13 10/01/14 PERCUTANEOUS [ENDOSCOPIC] GASTROSTOMY [PEG] 43.11 03/22/11 REPLACE GASTROSTOMY TUBE 97.02 10/01/14 Infectious Disease Assmt/Plan - Problem List Patient Problems: All Active Problems RAISED RED RASH TO LEFT LATERAL NECK (Acute) - Assessment Assessment: 1. [place]. 2. ? secondary infection. 3. Dementia. 4. COPD/Asthma - Plan Plan: CPM. Nutritional Asmnt/Malnutr-PDOC - Dietary Evaluation Malnutrition Findings (Please click <Entered> for more info): Nutritional Asmnt/Malnutrition Start: 09/11/18 15: 37 Text: Status: Complete Freq: Protocol: Document 09/11/18 15:37 [email or web address] (Rec: 09/11/18 15:47 [email or web address]) Nutritional Asmnt/Malnutrition Patient General Information Nutritional Screening High Risk Diagnosis cellulitis neck/chest wall, UTI Pertinent Medical Hx/Surgical Hx dysphagia s/p GT, cellulitis BUE, COPD, dementia, GERD Subjective Information Pt in airborne isolation, RN hanging new container Jevity 1 .2, states tolerating TF with no GRV, confirms TF x 20 hours (off from 4115-5363). Unable to obtain nutrition and wt hx from pt, no family present. No noted BM however RISK LEAD believes likely with BM earlier today. +bowel regimen. TF nutrition provision meets 100% kcal and 106% protein needs. Current Diet Order/ Nutrition Support Jevity 1.2 @ 70 ml/hr x 20 hours= 1400ml, 1680kcal, 78g protein, 1130ml H2O Patient / S.O Not Indicated Pertinent Medications Lipitor, MOM, Protonix, Miralax, senna Pertinent Labs 135 Na, 3.5 Alb Nutritional Hx/Data Height 1.57 m Height (Calculated Centimeters) 157.5 Current Weight (lbs) 51.71 kg Weight (Calculated Kilograms) 51.7 Weight (Calculated Grams) 30931.5 [place] Body Weight 110 lb Body Mass Index (BMI) 20.8 Weight Status Approriate GI Symptoms GI Symptoms None Last BM none noted in chart Difficult in: Swallowing Skin Integrity/Comment: no pressure injury Estimated Nutritional Goals BEE in Kcals: Using Current wt Calories/Kcals/Kg 25-30 Kcals Calculated 2168-0338 Protein: Using Current wt Protein g/k.1-1.4 Protein Calculated 57-73 Fluid: ml 4470-1193 Nutritional Problem 1. Problem Problem Swallow difficulty Etiology dysphagia Signs/Symptoms: GT Intervention/Recommendation Comments 1. continue Jevity 1.2 at 70 ml/hr x 20 hours 2. 2. Monitor TF rate, tolerance, wt, skin integrity and labs 3. F/U as high risk in 2-3 days Expected Outcomes/Goals Expected Outcomes/Goals 1. Pt to meet at least 90% of nutritional needs via nutrition support with tolerance 2. Wt stability, skin to remain intact, labs to approach WNL. Ksenia Herrera RD
[2018-09-13] MEDS: Dextromethorphan/Quinidine 20mg/10mg Cap GT SCH ×2 (09:48→18:42)
[2018-09-13] MEDS: Pantoprazole 40 mg EC Tab PO SCH (09:48)
[2018-09-13] MEDS: Magnesium Hydroxide (MOM) 30 mL UDC GT SCH (09:48)
[2018-09-13] MEDS: POLYETHYLENE GLYCOL 3350 17 GM PACK GT SCH (09:49)
[2018-09-13 10:52] LABS: ANION GAP 11.3 (7.0-16.0); BUN - UREA NITROGEN 22 mg/dL (7-25); CALCIUM SERUM 9.4 mg/dL (8.6-10.3); CARBON DIOXIDE 25.6 mEq/L (21.0-31.0); CHLORIDE 103 mEq/L (98-107); CREATININE - SERUM 1.2 mg/dL (0.6-1.2); GLUCOSE 113 mg/dL (70-105); POTASSIUM SERUM 3.9 mEq/L (3.5-5.1); SODIUM SERUM 136 mEq/L (136-145)
[2018-09-13] MEDS ORDERED: Sodium Chloride 0.9% 250 ML IV ONE (11:26)
[2018-09-13] MEDS ORDERED: Sodium Chloride 0.9% 1,000 ML IV SCH (12:45)
--- NOTE | 2018-09-13 15:52 | Progress Notes ---
DATE: 09/13/2018 SUBJECTIVE: Chart was reviewed and the patient interviewed. Also, discussed the patient's condition with the staff and reviewed records and labs. The patient seems to be calmer. The patient is less irritable and less agitated. Also, easier to redirect her. No major behavioral problems. ASSESSMENT: The patient is still anxious, but calmer than before. TREATMENT PLAN: Continue Risperdal same dose. Also, continue to monitor her behavior and followup. [facility]# [id number]
[2018-09-13] MEDS: Atorvastatin Calcium 10 MG TAB GT SCH (21:01)
[2018-09-14] MEDS: ACYCLOVIR SODIUM IV SCH (05:20)
[2018-09-14] MEDS: DEXTROSE 5% IV SCH (05:20)
--- NOTE | 2018-09-14 07:53 | General Progress Note ---
Subjective - Review of Systems Service Date: 09/14/18 Subjective: Awake, alert, afebrile. No acute distress. Presence of herpes zoster rash noted to the neck and left sided chest wall. Objective - Results Result Diagrams: 09/12/18 06:00 09/13/18 10:30 Recent Labs: Laboratory Last Values WBC 5.6 Th/cmm (4.8-10.8) 09/12/18 06:00 RBC 3.96 Mil/cmm (3.80-5.20) 09/12/18 06:00 Hgb 12.2 gm/dL (12-16) 09/12/18 06:00 Hct 36.5 % (41.0-60) L 09/12/18 06:00 MCV 92.0 fl (81-100) 09/12/18 06:00 MCH 30.8 pg (27.0-31.0) 09/12/18 06:00 MCHC Differential 33.4 pg (28.0-36.0) 09/12/18 06:00 RDW 13.9 % (11.5-20.0) 09/12/18 06:00 Plt Count 241 Th/cmm (150-400) 09/12/18 06:00 MPV 8.4 fl 09/12/18 06:00 Neutrophils % 68.0 % (40.0-80.0) 09/12/18 06:00 Lymphocytes % 16.9 % (20.0-50.0) L 09/12/18 06:00 Monocytes % 13.8 % (2.0-10.0) H 09/12/18 06:00 Eosinophils % 1.1 % (0.0-5.0) 09/12/18 06:00 Basophils % 0.2 % (0.0-2.0) 09/12/18 06:00 PT 10.2 SECONDS (9.5-11.5) 09/10/18 14:50 INR 0.98 (0.5-1.4) 09/10/18 14:50 PTT (Actin FS) 26.7 SECONDS (26.0-38.0) 09/10/18 14:50 Sodium 136 mEq/L (136-145) 09/13/18 10:30 Potassium 3.9 mEq/L (3.5-5.1) 09/13/18 10:30 Chloride 103 mEq/L (98-107) 09/13/18 10:30 Carbon Dioxide 25.6 mEq/L (21.0-31.0) 09/13/18 10:30 Anion Gap 11.3 (7.0-16.0) 09/13/18 10:30 BUN 22 mg/dL (7-25) 09/13/18 10:30 Creatinine 1.2 mg/dL (0.6-1.2) 09/13/18 10:30 Est GFR ( Amer) TNP 09/13/18 10:30 Est GFR (Non-Af Amer) TNP 09/13/18 10:30 BUN/Creatinine Ratio 18.3 09/13/18 10:30 Glucose 113 mg/dL (70-105) H 09/13/18 10:30 POC Glucose 112 MG/DL (70 - 105) H 09/12/18 12:12 Whole Bld Lactic Acid 1.78 mmol/L (0.60-1.99) 09/11/18 07:50 Calcium 9.4 mg/dL (8.6-10.3) 09/13/18 10:30 Total Bilirubin 0.3 mg/dL (0.3-1.0) 09/11/18 05:50 AST 32 U/L (13-39) 09/11/18 05:50 ALT 27 U/L (7-52) 09/11/18 05:50 Alkaline Phosphatase 91 U/L (34-104) 09/11/18 05:50 Total Protein 7.0 gm/dL (6.0-8.3) 09/11/18 05:50 Albumin 3.5 gm/dL (3.7-5.3) L 09/11/18 05:50 Globulin 3.5 gm/dL 09/11/18 05:50 Albumin/Globulin Ratio 1.0 (1.0-1.8) 09/11/18 05:50 Urine Source CATH 09/10/18 14:00 Urine Color YELLOW 09/10/18 14:00 Urine Clarity CLOUDY (CLEAR) H 09/10/18 14:00 Urine pH 8.5 (4.6 - 8.0) 09/10/18 14:00 Ur Specific [place] 1.010 (1.005-1.030) 09/10/18 14:00 Urine Protein TRACE mg/dL (NEGATIVE) 09/10/18 14:00 Urine Glucose (UA) NEGATIVE mg/dL (NEGATIVE) 09/10/18 14:00 Urine Ketones NEGATIVE mg/dL (NEGATIVE) 09/10/18 14:00 Urine Blood TRACE (NEGATIVE) 09/10/18 14:00 Urine Nitrate NEGATIVE (NEGATIVE) 09/10/18 14:00 Urine Bilirubin NEGATIVE (NEGATIVE) 09/10/18 14:00 Urine Urobilinogen 0.2 E.U./dL (0.2 - 1.0) 09/10/18 14:00 Ur Leukocyte Esterase LARGE (NEGATIVE) H 09/10/18 14:00 Urine RBC 2-5 /hpf (0-5) 09/10/18 14:00 Urine WBC 6-10 /hpf (0-5) H 09/10/18 14:00 Ur Epithelial Cells MODERATE /lpf (FEW) 09/10/18 14:00 Amorphous Sediment FEW PHOSPHATES (NONE SEEN) 09/10/18 14:00 Urine Bacteria 2+ /hpf (NONE SEEN) H 09/10/18 14:00 Vancomycin Trough 15.5 ug/mL (5-10) H 09/13/18 10:30 - Physical Exam Vitals and I&O: Vital Signs Temp 99 F 09/14/18 03:00 Pulse 92 09/14/18 03:00 Resp 19 09/14/18 03:00 BP 110/62 09/14/18 03:00 Pulse Ox 96 09/14/18 03:00 Intake & Output 09/13/18 09/14/18 09/14/18 18:59 06:59 18:59 Intake Total 525 1510 Balance 525 1510 Weight (lbs) 51.256 kg 51.001 kg Intake: Intake, IV Amount 360 470 Acyclovir Sodium 500 mg 110 220 In Dextrose 5% 100 ml @ 110 mls/hr IV Q8HR [facility] Rx #:[id number] Vancomycin HCl 0.75 gm In 250 250 Sodium Chloride 0.9% 250 ml @ 165 mls/hr IV Q12H [facility] Rx#:[id number] Tube Feeding 165 840 Other 200 Other: # Voids 2 2 # Bowel Movements 1 Stool Characteristics Liquid Brown Weight Source Bedscale Bedscale Active Medications: Current Medications Acetaminophen (Tylenol 650mg/20.3ml Suspension) 650 mg GT Q4H PRN PRN Reason: Pain or Fever >101 Stop: 11/10/18 00:29 Atorvastatin Calcium (Lipitor) 20 mg GT HS [facility]; Protocol Stop: 11/10/18 20:59 Last Admin: 09/13/18 21:01 Dose: 20 mg Baclofen (Lioresal) 10 mg GT BID [facility] Stop: 11/10/18 08:59 Last Admin: 09/13/18 18:42 Dose: 10 mg Clonazepam (Klonopin) 0.5 mg GT BID [facility]; Protocol Stop: 11/10/18 08:59 Last Admin: 09/13/18 18:42 Dose: 0.5 mg Dextromethorphan/Quinidine (Nuedexta 20mg-10mg) 1 cap GT BID [facility] Stop: 11/10/18 08:59 Last Admin: 09/13/18 18:42 Dose: 1 cap Acyclovir Sodium 500 mg/ (Dextrose) 110 mls @ 110 mls/hr IV Q8HR [facility] Stop: 11/10/18 12:59 Last Infusion: 09/14/18 06:20 Dose: Infused Vancomycin HCl 0.75 gm/ Sodium (Chloride) 250 mls @ 165 mls/hr IV Q12H [facility] Stop: 11/11/18 10:44 Last Infusion: 09/14/18 00:20 Dose: Infused Sodium Chloride (Nacl 0.9%) 1,000 mls @ 50 mls/hr IV .Q20H [facility] Stop: 11/12/18 12:44 Last Admin: 09/13/18 15:19 Dose: 50 mls/hr Magnesium Hydroxide (Milk Of Magnesia) 30 ml GT DAILY [facility] Stop: 11/10/18 08:59 Last Admin: 09/13/18 09:48 Dose: 30 ml Miscellaneous (Vancomycin Iv Per Pharmacy) 1 ea MC PRN PRN PRN Reason: PROTOCOL Stop: 11/10/18 07:55 Montelukast Sodium (Singulair) 10 mg GT HS [facility] Stop: 11/10/18 20:59 Last Admin: 09/13/18 21:01 Dose: 10 mg Mupirocin (Bactroban Oint) 1 appl NS BID [facility] Stop: 09/17/18 09:01 Last Admin: 09/13/18 18:42 Dose: 1 appl Pantoprazole Sodium (Protonix) 40 mg PO DAILY [facility] Stop: 11/11/18 08:59 Last Admin: 09/13/18 09:48 Dose: 40 mg Polyethylene Glycol (Miralax) 17 gm GT DAILY [facility] Stop: 11/10/18 08:59 Last Admin: 09/13/18 09:49 Dose: 17 gm Quetiapine Fumarate (Seroquel) 12.5 mg PO TID [facility]; Protocol Stop: 11/11/18 08:59 Last Admin: 09/13/18 21:01 Dose: 12.5 mg Senna (Senna) 8.6 mg GT BID [facility] Stop: 11/10/18 08:59 Last Admin: 09/13/18 18:42 Dose: 8.6 mg General: Alert, No acute distress HEENT: Atraumatic, PERRLA, EOMI Neck: Supple Cardiovascular: Regular rate, Normal S1, Normal S2 Lungs: Clear to auscultation Abdomen: Bowel sounds Extremities: no Clubbing, no Cyanosis Skin: Rash (presence of herpetic lesion to the neck/chest) - Procedures Procedures: Procedures Procedure Code Date COLONOSCOPY 45.23 09/28/13 DIAGNOSTIC COLONOSCOPY 34523 09/28/13 EGD BIOPSY SINGLE/MULTIPLE 27756 06/27/[address] GASTROSTOMY TUBE 62223 10/01/14 ESOPHAGOGASTRODUODENOSCOPY [EGD] W/CLOSED BIOPSY 45.16 06/27/14 OTHER ENDOSCOPY OF SM INTEST 45.13 10/01/14 PERCUTANEOUS [ENDOSCOPIC] GASTROSTOMY [PEG] 43.11 03/22/11 REPLACE GASTROSTOMY TUBE 97.02 10/01/14 Assessment/Plan - Problem List Patient Problems: All Active Problems RAISED RED RASH TO LEFT LATERAL NECK (Acute) - Assessment Assessment: Current Active Problems Problem Status Onset RAISED RED RASH TO LEFT LATERAL NECK Acute cellulitis neck/chest wall herpes zoster left chest/neck elevated lactic acid UTI +Proteus Mirabilis Nares + MRSA Asthma/COPD Dementia Dysphagia s/p gastrostomy tube Alzheimer's dementia hyperkalemia --gave Kayexelate, check BMP today - Plan Plan: repeat CBC,CMP,lactic acid ID consult psyche consult Nutritional Asmnt/Malnutr-PDOC - Dietary Evaluation Malnutrition Findings (Please click <Entered> for more info): Nutritional Asmnt/Malnutrition Start: 09/11/18 15: 37 Text: Status: Complete Freq: Protocol: Document 09/11/18 15:37 [email or web address] (Rec: 09/11/18 15:47 [email or web address]) Nutritional Asmnt/Malnutrition Patient General Information Nutritional Screening High Risk Diagnosis cellulitis neck/chest wall, UTI Pertinent Medical Hx/Surgical Hx dysphagia s/p GT, cellulitis BUE, COPD, dementia, GERD Subjective Information Pt in airborne isolation, RN hanging new container Jevity 1 .2, states tolerating TF with no GRV, confirms TF x 20 hours (off from 2063-9915). Unable to obtain nutrition and wt hx from pt, no family present. No noted BM however COURT [employer] JUDGE believes likely with BM earlier today. +bowel regimen. TF nutrition provision meets 100% kcal and 106% protein needs. Current Diet Order/ Nutrition Support Jevity 1.2 @ 70 ml/hr x 20 hours= 1400ml, 1680kcal, 78g protein, 1130ml H2O Patient / S.O Not Indicated Pertinent Medications Lipitor, MOM, Protonix, Miralax, senna Pertinent Labs 135 Na, 3.5 Alb Nutritional Hx/Data Height 1.57 m Height (Calculated Centimeters) 157.5 Current Weight (lbs) 51.71 kg Weight (Calculated Kilograms) 51.7 Weight (Calculated Grams) 58789.5 [place] Body Weight 110 lb Body Mass Index (BMI) 20.8 Weight Status Approriate GI Symptoms GI Symptoms None Last BM none noted in chart Difficult in: Swallowing Skin Integrity/Comment: no pressure injury Estimated Nutritional Goals BEE in Kcals: Using Current wt Calories/Kcals/Kg 25-30 Kcals Calculated 1954-0551 Protein: Using Current wt Protein g/k.1-1.4 Protein Calculated 57-73 Fluid: ml 8660-2010 Nutritional Problem 1. Problem Problem Swallow difficulty Etiology dysphagia Signs/Symptoms: GT Intervention/Recommendation Comments 1. continue Jevity 1.2 at 70 ml/hr x 20 hours 2. 2. Monitor TF rate, tolerance, wt, skin integrity and labs 3. F/U as high risk in 2-3 days Expected Outcomes/Goals Expected Outcomes/Goals 1. Pt to meet at least 90% of nutritional needs via nutrition support with tolerance 2. Wt stability, skin to remain intact, labs to approach WNL. Ksenia Herrera RD
[2018-09-14] MEDS ORDERED: D5-0.9%NS 1,000 ML IV SCH (08:00)
[2018-09-14 08:25] LABS: % BASOPHILS 0.7 % (0.0-2.0); % EOSINOPHILS 0.8 % (0.0-5.0); % MONOCYTES 12.6 % (2.0-10.0); % NEUTROPHILS 67.9 % (40.0-80.0); BASOPHILE ABSOLUTE 0.1 Th/cumm (0-0.2); EOSINOPHILE ABSOLUTE 0.1 Th/cmm (0.1-0.4); HEMATOCRIT 29.5 % (41.0-60); HEMOGLOBIN 10.1 gm/dL (12-16); LYMPHOCYTE ABSOLUTE 1.3 Th/cmm (1.5-3.0); MEAN CORPUSCULAR HEMOGLOBIN 31.4 pg (27.0-31.0); MEAN CORPUSCULAR HGB CONC 34.1 pg (28.0-36.0); MONOCYTE ABSOLUTE 0.9 Th/cmm (0.3-1.0); PLATELET COUNT 210 Th/cmm (150-400); RED BLOOD COUNT 3.21 Mil/cmm (3.80-5.20); RED CELL DISTRIBUTION WIDTH 14.5 % (11.5-20.0); WHITE BLOOD COUNT 7.4 Th/cmm (4.8-10.8)
[2018-09-14 08:57] LABS: ANION GAP 11.2 (7.0-16.0); BUN - UREA NITROGEN 37 mg/dL (7-25); CALCIUM SERUM 8.5 mg/dL (8.6-10.3); CARBON DIOXIDE 26.1 mEq/L (21.0-31.0); CHLORIDE 106 mEq/L (98-107); CREATININE - SERUM 2.3 mg/dL (0.6-1.2); GLUCOSE 111 mg/dL (70-105); POTASSIUM SERUM 4.3 mEq/L (3.5-5.1); SODIUM SERUM 139 mEq/L (136-145)
[2018-09-14] MEDS: Pantoprazole 40 mg EC Tab PO SCH (09:45)
[2018-09-14] MEDS: Magnesium Hydroxide (MOM) 30 mL UDC GT SCH (09:45)
[2018-09-14] MEDS: Dextromethorphan/Quinidine 20mg/10mg Cap GT SCH ×2 (09:45→16:42)
[2018-09-14] MEDS: POLYETHYLENE GLYCOL 3350 17 GM PACK GT SCH (09:48)
--- NOTE | 2018-09-14 11:11 | Infectious Disease Prog Note ---
Infectious Disease Subjective - Review of Systems Service Date: 09/14/18 Subjective: There is no change, no the rash over the left side of the neck. Infectious Disease Objective - Results Result Diagrams: 09/14/18 08:20 09/14/18 08:20 Recent Labs: Laboratory Last Values WBC 7.4 Th/cmm (4.8-10.8) 09/14/18 08:20 RBC 3.21 Mil/cmm (3.80-5.20) L 09/14/18 08:20 Hgb 10.1 gm/dL (12-16) L 09/14/18 08:20 Hct 29.5 % (41.0-60) L 09/14/18 08:20 MCV 92.0 fl (81-100) 09/14/18 08:20 MCH 31.4 pg (27.0-31.0) H 09/14/18 08:20 MCHC Differential 34.1 pg (28.0-36.0) 09/14/18 08:20 RDW 14.5 % (11.5-20.0) 09/14/18 08:20 Plt Count 210 Th/cmm (150-400) 09/14/18 08:20 MPV 8.1 fl 09/14/18 08:20 Neutrophils % 67.9 % (40.0-80.0) 09/14/18 08:20 Lymphocytes % 18.0 % (20.0-50.0) L 09/14/18 08:20 Monocytes % 12.6 % (2.0-10.0) H 09/14/18 08:20 Eosinophils % 0.8 % (0.0-5.0) 09/14/18 08:20 Basophils % 0.7 % (0.0-2.0) 09/14/18 08:20 PT 10.2 SECONDS (9.5-11.5) 09/10/18 14:50 INR 0.98 (0.5-1.4) 09/10/18 14:50 PTT (Actin FS) 26.7 SECONDS (26.0-38.0) 09/10/18 14:50 Sodium 139 mEq/L (136-145) 09/14/18 08:20 Potassium 4.3 mEq/L (3.5-5.1) 09/14/18 08:20 Chloride 106 mEq/L (98-107) 09/14/18 08:20 Carbon Dioxide 26.1 mEq/L (21.0-31.0) 09/14/18 08:20 Anion Gap 11.2 (7.0-16.0) 09/14/18 08:20 BUN 37 mg/dL (7-25) H 09/14/18 08:20 Creatinine 2.3 mg/dL (0.6-1.2) H 09/14/18 08:20 Est GFR ( Amer) TNP 09/14/18 08:20 Est GFR (Non-Af Amer) TNP 09/14/18 08:20 BUN/Creatinine Ratio 16.1 09/14/18 08:20 Glucose 111 mg/dL (70-105) H 09/14/18 08:20 POC Glucose 112 MG/DL (70 - 105) H 09/12/18 12:12 Whole Bld Lactic Acid 1.78 mmol/L (0.60-1.99) 09/11/18 07:50 Calcium 8.5 mg/dL (8.6-10.3) L 09/14/18 08:20 Total Bilirubin 0.3 mg/dL (0.3-1.0) 09/11/18 05:50 AST 32 U/L (13-39) 09/11/18 05:50 ALT 27 U/L (7-52) 09/11/18 05:50 Alkaline Phosphatase 91 U/L (34-104) 09/11/18 05:50 Total Protein 7.0 gm/dL (6.0-8.3) 09/11/18 05:50 Albumin 3.5 gm/dL (3.7-5.3) L 09/11/18 05:50 Globulin 3.5 gm/dL 09/11/18 05:50 Albumin/Globulin Ratio 1.0 (1.0-1.8) 09/11/18 05:50 Urine Source CATH 09/10/18 14:00 Urine Color YELLOW 09/10/18 14:00 Urine Clarity CLOUDY (CLEAR) H 09/10/18 14:00 Urine pH 8.5 (4.6 - 8.0) 09/10/18 14:00 Ur Specific [place] 1.010 (1.005-1.030) 09/10/18 14:00 Urine Protein TRACE mg/dL (NEGATIVE) 09/10/18 14:00 Urine Glucose (UA) NEGATIVE mg/dL (NEGATIVE) 09/10/18 14:00 Urine Ketones NEGATIVE mg/dL (NEGATIVE) 09/10/18 14:00 Urine Blood TRACE (NEGATIVE) 09/10/18 14:00 Urine Nitrate NEGATIVE (NEGATIVE) 09/10/18 14:00 Urine Bilirubin NEGATIVE (NEGATIVE) 09/10/18 14:00 Urine Urobilinogen 0.2 E.U./dL (0.2 - 1.0) 09/10/18 14:00 Ur Leukocyte Esterase LARGE (NEGATIVE) H 09/10/18 14:00 Urine RBC 2-5 /hpf (0-5) 09/10/18 14:00 Urine WBC 6-10 /hpf (0-5) H 09/10/18 14:00 Ur Epithelial Cells MODERATE /lpf (FEW) 09/10/18 14:00 Amorphous Sediment FEW PHOSPHATES (NONE SEEN) 09/10/18 14:00 Urine Bacteria 2+ /hpf (NONE SEEN) H 09/10/18 14:00 Vancomycin Trough 15.5 ug/mL (5-10) H 09/13/18 10:30 - Physical Exam Vitals and I&O: Vital Signs Temp 97.8 F 09/14/18 08:00 Pulse 68 09/14/18 08:00 Resp 19 09/14/18 08:00 BP 79/33 09/14/18 08:00 Pulse Ox 96 09/14/18 08:00 Intake & Output 09/13/18 09/14/18 09/14/18 18:59 06:59 18:59 Intake Total 525 1510 Balance 525 1510 Weight (lbs) 51.256 kg 51.001 kg Intake: Intake, IV Amount 360 470 Acyclovir Sodium 500 mg 110 220 In Dextrose 5% 100 ml @ 110 mls/hr IV Q8HR [facility] Rx #:[id number] Vancomycin HCl 0.75 gm In 250 250 Sodium Chloride 0.9% 250 ml @ 165 mls/hr IV Q12H [facility] Rx#:[id number] Tube Feeding 165 840 Other 200 Other: # Voids 2 2 # Bowel Movements 1 Stool Characteristics Liquid Liquid Brown Brown Weight Source Bedscale Bedscale Active Medications: Current Medications Acetaminophen (Tylenol 650mg/20.3ml Suspension) 650 mg GT Q4H PRN PRN Reason: Pain or Fever >101 Stop: 11/10/18 00:29 Atorvastatin Calcium (Lipitor) 20 mg GT HS [facility]; Protocol Stop: 11/10/18 20:59 Last Admin: 09/13/18 21:01 Dose: 20 mg Baclofen (Lioresal) 10 mg GT BID [facility] Stop: 11/10/18 08:59 Last Admin: 09/14/18 09:46 Dose: 10 mg Clonazepam (Klonopin) 0.5 mg GT BID [facility]; Protocol Stop: 11/10/18 08:59 Last Admin: 09/14/18 09:47 Dose: Not Given Dextromethorphan/Quinidine (Nuedexta 20mg-10mg) 1 cap GT BID [facility] Stop: 11/10/18 08:59 Last Admin: 09/14/18 09:45 Dose: 1 cap Acyclovir Sodium 500 mg/ (Dextrose) 110 mls @ 110 mls/hr IV Q8HR [facility] Stop: 11/10/18 12:59 Last Infusion: 09/14/18 06:20 Dose: Infused Vancomycin HCl 0.75 gm/ Sodium (Chloride) 250 mls @ 165 mls/hr IV Q12H [facility] Stop: 11/11/18 10:44 Last Admin: 09/14/18 09:44 Dose: 165 mls/hr Dextrose/Sodium Chloride (D5-0.9%Ns) 1,000 mls @ 50 mls/hr IV .Q20H [facility] Stop: 11/13/18 07:59 Last Admin: 09/14/18 09:47 Dose: 50 mls/hr Magnesium Hydroxide (Milk Of Magnesia) 30 ml GT DAILY [facility] Stop: 11/10/18 08:59 Last Admin: 09/14/18 09:45 Dose: 30 ml Miscellaneous (Vancomycin Iv Per Pharmacy) 1 ea MC PRN PRN PRN Reason: PROTOCOL Stop: 11/10/18 07:55 Montelukast Sodium (Singulair) 10 mg GT HS [facility] Stop: 11/10/18 20:59 Last Admin: 09/13/18 21:01 Dose: 10 mg Mupirocin (Bactroban Oint) 1 appl NS BID [facility] Stop: 09/17/18 09:01 Last Admin: 09/14/18 09:44 Dose: 1 appl Pantoprazole Sodium (Protonix) 40 mg PO DAILY [facility] Stop: 11/11/18 08:59 Last Admin: 09/14/18 09:45 Dose: 40 mg Polyethylene Glycol (Miralax) 17 gm GT DAILY [facility] Stop: 11/10/18 08:59 Last Admin: 09/14/18 09:48 Dose: Not Given Quetiapine Fumarate (Seroquel) 12.5 mg PO TID [facility]; Protocol Stop: 11/11/18 08:59 Last Admin: 09/14/18 09:46 Dose: 12.5 mg Senna (Senna) 8.6 mg GT BID [facility] Stop: 11/10/18 08:59 Last Admin: 09/14/18 09:45 Dose: 8.6 mg General: no acute distress, well developed, well nourished HEENT: atraumatic, normocephalic, PERRLA, EOMI, moist mucous membrane Neck: supple, no thyromegaly, no lymphadenopathy, no rigid Cardiovascular: S1S2, regular Lungs: clear to auscultation bilaterally, clear to percussion Abdomen: soft, no tender, no distended Extremities: no cyanosis, no clubbing, no edema Neurological: awake, alert, oriented Skin: intact, rash (no change.) - Procedures Procedures: Procedures Procedure Code Date COLONOSCOPY 45.23 09/28/13 DIAGNOSTIC COLONOSCOPY 61662 09/28/13 EGD BIOPSY SINGLE/MULTIPLE 53135 06/27/[address] GASTROSTOMY TUBE 01572 10/01/14 ESOPHAGOGASTRODUODENOSCOPY [EGD] W/CLOSED BIOPSY 45.16 06/27/14 OTHER ENDOSCOPY OF SM INTEST 45.13 10/01/14 PERCUTANEOUS [ENDOSCOPIC] GASTROSTOMY [PEG] 43.11 03/22/11 REPLACE GASTROSTOMY TUBE 97.02 10/01/14 Infectious Disease Assmt/Plan - Problem List Patient Problems: All Active Problems RAISED RED RASH TO LEFT LATERAL NECK (Acute) - Assessment Assessment: 1. [place]. 2. ? secondary infection. 3. Dementia. 4. COPD/Asthma. 5. mild UTI: Proteus. - Plan Plan: Hold acyclovir and continue vancO IV for 7 days total. start rocephin. IVF. montero creatine improves, may resume acyclovir 800mg po 5 times a day to complete 7 days therapy. may dc patient to snf with isolation. Nutritional Asmnt/Malnutr-PDOC - Dietary Evaluation Malnutrition Findings (Please click <Entered> for more info): Nutritional Asmnt/Malnutrition Start: 09/11/18 15: 37 Text: Status: Complete Freq: Protocol: Document 09/11/18 15:37 [email or web address] (Rec: 09/11/18 15:47 [email or web address]) Nutritional Asmnt/Malnutrition Patient General Information Nutritional Screening High Risk Diagnosis cellulitis neck/chest wall, UTI Pertinent Medical Hx/Surgical Hx dysphagia s/p GT, cellulitis BUE, COPD, dementia, GERD Subjective Information Pt in airborne isolation, RN hanging new container Jevity 1 .2, states tolerating TF with no GRV, confirms TF x 20 hours (off from 9456-4776). Unable to obtain nutrition and wt hx from pt, no family present. No noted BM however S[employer]IOR COMPLIANCE OFFICER believes likely with BM earlier today. +bowel regimen. TF nutrition provision meets 100% kcal and 106% protein needs. Current Diet Order/ Nutrition Support Jevity 1.2 @ 70 ml/hr x 20 hours= 1400ml, 1680kcal, 78g protein, 1130ml H2O Patient / S.O Not Indicated Pertinent Medications Lipitor, MOM, Protonix, Miralax, senna Pertinent Labs 135 Na, 3.5 Alb Nutritional Hx/Data Height 1.57 m Height (Calculated Centimeters) 157.5 Current Weight (lbs) 51.71 kg Weight (Calculated Kilograms) 51.7 Weight (Calculated Grams) 19448.5 [place] Body Weight 110 lb Body Mass Index (BMI) 20.8 Weight Status Approriate GI Symptoms GI Symptoms None Last BM none noted in chart Difficult in: Swallowing Skin Integrity/Comment: no pressure injury Estimated Nutritional Goals BEE in Kcals: Using Current wt Calories/Kcals/Kg 25-30 Kcals Calculated 8148-1591 Protein: Using Current wt Protein g/k.1-1.4 Protein Calculated 57-73 Fluid: ml 5641-7740 Nutritional Problem 1. Problem Problem Swallow difficulty Etiology dysphagia Signs/Symptoms: GT Intervention/Recommendation Comments 1. continue Jevity 1.2 at 70 ml/hr x 20 hours 2. 2. Monitor TF rate, tolerance, wt, skin integrity and labs 3. F/U as high risk in 2-3 days Expected Outcomes/Goals Expected Outcomes/Goals 1. Pt to meet at least 90% of nutritional needs via nutrition support with tolerance 2. Wt stability, skin to remain intact, labs to approach WNL. Ksenia Herrera RD
[2018-09-14] MEDS ORDERED: cefTRIAXone 1 GM in Sodium Chloride 0.9% 50 ML IV SCH (12:00)
--- NOTE | 2018-09-15 16:43 | Progress Notes ---
DATE: 09/14/2018 SUBJECTIVE: Chart was reviewed and the patient interviewed. Also discussed the patient's condition with the staff and reviewed records and labs. The patient seems to be calmer and less agitated. The patient was trying to do some stretch on her leg while I am interviewing her and she was trying to get her leg across from the bed rails. She still had periods of agitation, but seems to be much less and also easier to redirect her and she is able to follow directions. The patient continued to take Seroquel with no side effects. ASSESSMENT: The patient is still agitated, but seems to be much calmer. TREATMENT PLAN: Continue to monitor her behavior and her condition closely and continue to adjust psychotropic medications and work on behavioral modification. JOB# [id number]
--- NOTE | 2018-09-16 01:48 | Infectious Disease Prog Note ---
Infectious Disease Subjective - Review of Systems Service Date: 09/16/18 Subjective: DW Case management not to discharge the patient. However, she was discharged to SNF. Infectious Disease Objective - Results Result Diagrams: 09/14/18 08:20 09/14/18 08:20 Recent Labs: Laboratory Last Values WBC 7.4 Th/cmm (4.8-10.8) 09/14/18 08:20 RBC 3.21 Mil/cmm (3.80-5.20) L 09/14/18 08:20 Hgb 10.1 gm/dL (12-16) L 09/14/18 08:20 Hct 29.5 % (41.0-60) L 09/14/18 08:20 MCV 92.0 fl (81-100) 09/14/18 08:20 MCH 31.4 pg (27.0-31.0) H 09/14/18 08:20 MCHC Differential 34.1 pg (28.0-36.0) 09/14/18 08:20 RDW 14.5 % (11.5-20.0) 09/14/18 08:20 Plt Count 210 Th/cmm (150-400) 09/14/18 08:20 MPV 8.1 fl 09/14/18 08:20 Neutrophils % 67.9 % (40.0-80.0) 09/14/18 08:20 Lymphocytes % 18.0 % (20.0-50.0) L 09/14/18 08:20 Monocytes % 12.6 % (2.0-10.0) H 09/14/18 08:20 Eosinophils % 0.8 % (0.0-5.0) 09/14/18 08:20 Basophils % 0.7 % (0.0-2.0) 09/14/18 08:20 PT 10.2 SECONDS (9.5-11.5) 09/10/18 14:50 INR 0.98 (0.5-1.4) 09/10/18 14:50 PTT (Actin FS) 26.7 SECONDS (26.0-38.0) 09/10/18 14:50 Sodium 139 mEq/L (136-145) 09/14/18 08:20 Potassium 4.3 mEq/L (3.5-5.1) 09/14/18 08:20 Chloride 106 mEq/L (98-107) 09/14/18 08:20 Carbon Dioxide 26.1 mEq/L (21.0-31.0) 09/14/18 08:20 Anion Gap 11.2 (7.0-16.0) 09/14/18 08:20 BUN 37 mg/dL (7-25) H 09/14/18 08:20 Creatinine 2.3 mg/dL (0.6-1.2) H 09/14/18 08:20 Est GFR ( Amer) TNP 09/14/18 08:20 Est GFR (Non-Af Amer) TNP 09/14/18 08:20 BUN/Creatinine Ratio 16.1 09/14/18 08:20 Glucose 111 mg/dL (70-105) H 09/14/18 08:20 POC Glucose 112 MG/DL (70 - 105) H 09/12/18 12:12 Whole Bld Lactic Acid 1.78 mmol/L (0.60-1.99) 09/11/18 07:50 Calcium 8.5 mg/dL (8.6-10.3) L 09/14/18 08:20 Total Bilirubin 0.3 mg/dL (0.3-1.0) 09/11/18 05:50 AST 32 U/L (13-39) 09/11/18 05:50 ALT 27 U/L (7-52) 09/11/18 05:50 Alkaline Phosphatase 91 U/L (34-104) 09/11/18 05:50 Total Protein 7.0 gm/dL (6.0-8.3) 09/11/18 05:50 Albumin 3.5 gm/dL (3.7-5.3) L 09/11/18 05:50 Globulin 3.5 gm/dL 09/11/18 05:50 Albumin/Globulin Ratio 1.0 (1.0-1.8) 09/11/18 05:50 Urine Source CATH 09/10/18 14:00 Urine Color YELLOW 09/10/18 14:00 Urine Clarity CLOUDY (CLEAR) H 09/10/18 14:00 Urine pH 8.5 (4.6 - 8.0) 09/10/18 14:00 Ur Specific [place] 1.010 (1.005-1.030) 09/10/18 14:00 Urine Protein TRACE mg/dL (NEGATIVE) 09/10/18 14:00 Urine Glucose (UA) NEGATIVE mg/dL (NEGATIVE) 09/10/18 14:00 Urine Ketones NEGATIVE mg/dL (NEGATIVE) 09/10/18 14:00 Urine Blood TRACE (NEGATIVE) 09/10/18 14:00 Urine Nitrate NEGATIVE (NEGATIVE) 09/10/18 14:00 Urine Bilirubin NEGATIVE (NEGATIVE) 09/10/18 14:00 Urine Urobilinogen 0.2 E.U./dL (0.2 - 1.0) 09/10/18 14:00 Ur Leukocyte Esterase LARGE (NEGATIVE) H 09/10/18 14:00 Urine RBC 2-5 /hpf (0-5) 09/10/18 14:00 Urine WBC 6-10 /hpf (0-5) H 09/10/18 14:00 Ur Epithelial Cells MODERATE /lpf (FEW) 09/10/18 14:00 Amorphous Sediment FEW PHOSPHATES (NONE SEEN) 09/10/18 14:00 Urine Bacteria 2+ /hpf (NONE SEEN) H 09/10/18 14:00 Vancomycin Trough 15.5 ug/mL (5-10) H 09/13/18 10:30 - Physical Exam Vitals and I&O: Vital Signs Temp 99.3 F 09/14/18 16:00 Pulse 67 09/14/18 16:00 Resp 18 09/14/18 16:00 BP 89/51 09/14/18 16:00 Pulse Ox 95 09/14/18 16:00 - Procedures Procedures: Procedures Procedure Code Date COLONOSCOPY 45.23 09/28/13 DIAGNOSTIC COLONOSCOPY 48792 09/28/13 EGD BIOPSY SINGLE/MULTIPLE 61839 06/27/[address] GASTROSTOMY TUBE 83210 10/01/14 ESOPHAGOGASTRODUODENOSCOPY [EGD] W/CLOSED BIOPSY 45.16 06/27/14 OTHER ENDOSCOPY OF SM INTEST 45.13 10/01/14 PERCUTANEOUS [ENDOSCOPIC] GASTROSTOMY [PEG] 43.11 03/22/11 REPLACE GASTROSTOMY TUBE 97.02 10/01/14 Infectious Disease Assmt/Plan - Assessment Assessment: 1. [place]. 2. ? secondary infection. 3. Dementia. 4. COPD/Asthma. 5. mild UTI: Proteus. 6. SREEDHAR - Plan Plan: Hold acyclovir and continue vancO IV for 7 days total. start rocephin. IVF. when creatine improves, may resume acyclovir 800mg po 5 times a day to complete 7 days therapy. may dc patient to snf with isolation. Nutritional Asmnt/Malnutr-PDOC - Dietary Evaluation Malnutrition Findings (Please click <Entered> for more info): Nutritional Asmnt/Malnutrition Start: 09/11/18 15: 37 Text: Status: Complete Freq: Protocol: Document 09/11/18 15:37 [email or web address] (Rec: 09/11/18 15:47 [email or web address]) Nutritional Asmnt/Malnutrition Patient General Information Nutritional Screening High Risk Diagnosis cellulitis neck/chest wall, UTI Pertinent Medical Hx/Surgical Hx dysphagia s/p GT, cellulitis BUE, COPD, dementia, GERD Subjective Information Pt in airborne isolation, RN hanging new container Jevity 1 .2, states tolerating TF with no GRV, confirms TF x 20 hours (off from [id number]). Unable to obtain nutrition and wt hx from pt, no family present. No noted BM however [employer] believes likely with BM earlier today. +bowel regimen. TF nutrition provision meets 100% kcal and 106% protein needs. Current Diet Order/ Nutrition Support Jevity 1.2 @ 70 ml/hr x 20 hours= 1400ml, 1680kcal, 78g protein, 1130ml H2O Patient / S.O Not Indicated Pertinent Medications Lipitor, MOM, Protonix, Miralax, senna Pertinent Labs 135 Na, 3.5 Alb Nutritional Hx/Data Height 1.57 m Height (Calculated Centimeters) 157.5 Current Weight (lbs) 51.71 kg Weight (Calculated Kilograms) 51.7 Weight (Calculated Grams) 03060.5 Docena Body Weight 110 lb Body Mass Index (BMI) 20.8 Weight Status Approriate GI Symptoms GI Symptoms None Last BM none noted in chart Difficult in: Swallowing Skin Integrity/Comment: no pressure injury Estimated Nutritional Goals BEE in Kcals: Using Current wt Calories/Kcals/Kg 25-30 Kcals Calculated 9082-7134 Protein: Using Current wt Protein g/k.1-1.4 Protein Calculated 57-73 Fluid: ml [id number] Nutritional Problem 1. Problem Problem Swallow difficulty Etiology dysphagia Signs/Symptoms: GT Intervention/Recommendation Comments 1. continue Jevity 1.2 at 70 ml/hr x 20 hours 2. 2. Monitor TF rate, tolerance, wt, skin integrity and labs 3. F/U as high risk in 2-3 days Expected Outcomes/Goals Expected Outcomes/Goals 1. Pt to meet at least 90% of nutritional needs via nutrition support with tolerance 2. Wt stability, skin to remain intact, labs to approach WNL. Ksenia Herrera RD
--- NOTE | 2018-09-20 01:09 | Discharge Summary ---
DATE OF DISCHARGE: 09/14/2018 ATTENDING PHYSICIAN: Abisai Allen DO. PRELIMINARY DIAGNOSES: 1. Cellulitis to the neck and chest wall. 2. Herpes zoster infection to the chest and neck. 3. Elevated lactic acid. 4. Urinary tract infection, positive for Proteus mirabilis. 5. Positive MRSA of the nares. 6. Asthma and chronic obstructive pulmonary disease. 7. Dementia. 8. Dysphagia, status post G-tube placement. 9. Alzheimer dementia. 10. Hyperkalemia. DISCHARGE DIAGNOSES: 1. Cellulitis to the neck and chest wall. 2. Herpes zoster infection to the chest and neck. 3. Elevated lactic acid. 4. Urinary tract infection, positive for Proteus mirabilis. 5. Positive MRSA of the nares. 6. Asthma and chronic obstructive pulmonary disease. 7. Dementia. 8. Dysphagia, status post G-tube placement. 9. Alzheimer dementia. 10. Hyperkalemia. HISTORY OF PRESENT ILLNESS: This is an 83-year-old female who presents to [facility] ER from long term facility for a rash to the left side of the neck and chest. The patient has a previous history of cellulitis of the right upper extremity, COPD, asthma, dementia, gastroesophageal reflux disease, anxiety disorder, Alzheimer's dementia, status post G-tube placement. Initial lab work done in the ER revealed a white count of 5.8, hemoglobin 12.1, hematocrit 35.9, platelets 241,000. Sodium 135, potassium 4.5, BUN 21, creatinine 0.7, glucose 105. UA was positive for leukocyte esterase, wbc's 6-10 cells per high power field, bacteria was 2+. The patient was subsequently admitted for further evaluation and treatment. HOSPITAL COURSE: The patient improved during her hospital stay, was initially treated with IV vancomycin and acyclovir IV. The rash improved during her hospital stay. The patient was seen and evaluated by ID, see dictated report, as well as Psychiatry, see dictated report. Initial white count was normal throughout her hospital stay. The patient's potassium was elevated at 5.6. The patient was given Kayexalate, which brought her potassium down to 3.9. During her hospital stay, the patient's initial lactic acid was 2.9. On 09/10/2018, it dropped down to 1.1. The patient was subsequently discharged in stable condition, was to continue with the IV acyclovir. [facility]# [id number]
== END 2018-09-14 18:49 | DRG 595 ==
LOC: ER 14:11 → OBSVTOIN 19:18 → MSI 19:18
PROVIDERS: ADMIT Family Medicine; ATTEND Family Medicine
DX: B02.9 Zoster without complications (principal); R53.2 Functional quadriplegia; N17.9 Acute kidney failure, unspecified; L03.221 Cellulitis of neck; E87.2 Acidosis; N39.0 Urinary tract infection, site not specified; F02.81 Dementia in other diseases classified elsewhere, unspecified severity, with behavioral disturbance; Z93.1 Gastrostomy status; F29 Unspecified psychosis not due to a substance or known physiological condition; J44.9 Chronic obstructive pulmonary disease, unspecified; K21.9 Gastro-esophageal reflux disease without esophagitis; G30.9 Alzheimer's disease, unspecified; F41.9 Anxiety disorder, unspecified; R13.10 Dysphagia, unspecified; E87.5 Hyperkalemia; B96.4 Proteus (mirabilis) (morganii) as the cause of diseases classified elsewhere; Z88.0 Allergy status to penicillin
CPT/HCPCS: 36415-UA; 80048-TC; 80053-TC; 80202-TC; 81001-TC; 82948-90; 83605; 85025-TC; 85610-TC; 87086-90; J0696; J3370; J7030; J7040; Z7610